=== PATIENT | female | born 1960 | race Caucasian/White ===

== ENCOUNTER → 2019-04-17 | Outpatient (CLI) | payer OTHER ==
--- NOTE | 2019-04-18 08:07 | CTL ---
EXAMINATION TYPE: CT Low Dose Lung DATE OF EXAM ORDERED: 04/17/2019 HISTORY: . Lung cancer screening CT DLP: 76.[address] CTDI: 2.20 mGy Automated exposure control for dose reduction was used. SCREENING VISIT: Initial COMPARISON: None TECHNIQUE: Low dose computed tomography scan was performed through the chest at 1 mm thick sections a nd reconstructed images in the coronal plane at [address] DIAGNOSTIC QUALITY: Satisfactory FINDINGS: LUNG NODULES: None. LUNGS: COPD: Severity: Mild. A few emphysematous blebs at the lung apices Fibrosis: Severity: None Lymph nodes: None Other findings: None RIGHT PLEURAL SPACE: Effusion: None Calcification: None Thickening: None Pneumothorax: None LEFT PLEURAL SPACE: Effusion: None Calcification: None Thickening: None Pneumothorax: None HEART: Heart Size: Normal Coronary calcification: Mild Pericardial effusion: Mild OTHER FINDINGS: Upper abdomen: Normal Bony thorax: Normal Supraclavicular region: Normal Other: Ascending thoracic aorta at the level the main pulmonary artery measures 3.5 cm. The main pul monary artery at the bifurcation measures 2.8 cm. IMPRESSION: 1. Normal low-dose CT chest FOLLOW UP CT CHEST RECOMMENDATION: Screening low-dose CT chest per protocol in [address] LUNG RAD: 1
== END | disposition home or self-care (01) ==
LOC: RADCTMAIN 10:29
PROVIDERS: ATTEND Family Medicine
DX: Z12.2 Encounter for screening for malignant neoplasm of respiratory organs (principal); F17.210 Nicotine dependence, cigarettes, uncomplicated

== ENCOUNTER → 2019-12-24 | Outpatient (CLI) | payer OTHER ==
--- NOTE | 2019-12-24 11:59 | XR ---
EXAMINATION TYPE: XR chest 2V DATE OF EXAM: 12/24/2019 COMPARISON: NONE TECHNIQUE: PA and lateral views submitted. HISTORY: Preop FINDINGS: The lungs are clear and there is no pneumothorax, pleural effusion, or focal pneumonia. No overt fa ilure. Biapical pleural thickening. Hypertrophic and degenerative change of the spine. IMPRESSION: 1. No acute process.
== END | disposition home or self-care (01) ==
LOC: RADXRMAIN 11:30
PROVIDERS: ATTEND Neurological Surgery
DX: I10 Essential (primary) hypertension (principal); G93.5 Compression of brain
CPT/HCPCS: 71046

== ENCOUNTER 2020-01-22 20:02 | Emergency (ER) | payer OTHER ==
[2020-01-22 20:18] VITALS: RESP 18
--- NOTE | 2020-01-22 20:20 | ED ---
General Adult HPI - General Stated complaint: Post Op Incision Leaking Time Seen by Provider: 01/22/20 20:13 Source: patient Mode of arrival: ambulatory Limitations: no limitations - History of Present Illness Initial comments: Dictation was produced using [employer] dictation software. please excuse any grammatical, word or spelling errors. This patient was cared for during a federal and state declared state of emergency secondary to Covid 19 Chief Complaint: 59-year-old female presents with drainage from surgical site History of Present Illness: Patient's 59-year-old female 3 weeks ago patient had foramina and magnetic craniotomy for Chiari malformation. Patient states after the procedure her headache symptoms improved. She was at home relaxing when all of a sudden her son told her that she had drainage of clear fluid from her surgical site on her posterior neck. Patient states she does feel slight dizziness however didn't think much of it. Patient has any numbness and paresthesias to the arms or legs. Denies any vision loss. The ROS documented in this emergency department record has been reviewed and confirmed by me. Those systems with pertinent positive or negative responses have been documented in the HPI. All other systems are other negative and/or noncontributory. PHYSICAL EXAM: General Impression: Alert and oriented x3, not in acute distress HEENT: Normocephalic atraumatic, extra-ocular movements intact, pupils equal and reactive to light bilaterally, mucous membranes moist. Posterior neck: 12 cm surgical site over the posterior neck. There is some swelling around the middle portion of the surgical scar. With mild palpation there is drainage of clear fluid. Cardiovascular: Heart regular rate and rhythm Chest: Able to complete full sentences, no retractions, no tachypnea Abdomen: abdomen soft, non-tender, non-distended, no organomegaly Musculoskeletal: Pulses present and equal in all extremities, no peripheral e lynn Motor: no focal deficits noted Neurological: CN II-XII grossly intact, no focal motor or sensory deficits noted Skin: Intact with no visualized rashes Psych: Normal affect and mood ED course: 79-year-old feel presents with drainage from surgical site. She is 3 weeks postop from craniotomy for Chiari malformation treatment. Vital signs are within acceptable limits. Computed tomography scan of the brain and C-spine shows occipital craniotomy defect with large septated cystic fluid collection behind the occipital bone. There is elongated cystic fluid collection within the septated is fat tissue midline.. There is concern that this fluid that straining from her surgical site is cerebrospinal fluid. Case was discussed with Juliet who is a nurse practitioner who is taking call for Dr. Villareal at [facility]. She will get in contact with Dr. Villareal for recommendations on how to proceed further.Juliet called back and spoke with Dr. Villareal. She requested the patient be sent to [facility] emergency department for ER to ER transfer. Given that there is concern of CSF leakage to the skin patient given cefazolin. Case is discussed with Dr. Woody who is willing to accept patient care for ER to ER transfer. - Related Data Allergies Allergy/AdvReac Type Severity Reaction Status Date / Time No Known Allergies Allergy Verified 01/22/20 20:29 Review of Systems ROS Statement: Those systems with pertinent positive or pertinent negative responses have been documented in the HPI. ROS Other: All systems not noted in ROS Statement are negative. Past Medical History Past Medical History: Hypertension Additional Past Medical History / Comment(s): Chiri One History of Any Multi-Drug Resistant Organisms: None Reported Additional Past Surgical History / Comment(s): crainotomy Sept. 14 Past Psychological History: No Psychological Hx Reported Smoking Status: Former smoker Past Alcohol Use History: None Reported Past Drug Use History: Marijuana General Exam Limitations: no limitations Course Vital Signs 01/22/20 01/22/20 20:15 20:51 Temperature 98 F 97.9 F Pulse Rate 79 75 Respiratory 18 18 Rate Blood Pressure 124/96 137/98 O2 Sat by Pulse 100 98 Oximetry Medical Decision Making - Lab Data Result diagrams: 01/22/20 20:21 01/22/20 20:21 Lab Results 01/22/20 01/22/20 01/22/20 Range/Units 20:21 20:21 20:21 WBC 7.9 (3.8-10.6) k/uL RBC 5.45 H (3.80-5.40) m/uL Hgb 16.2 H (11.4-16.0) gm/dL Hct 47.4 H (34.0-46.0) % MCV 87.1 (80.0-100.0) fL MCH 29.8 (25.0-35.0) pg MCHC 34.2 (31.0-37.0) g/dL RDW 13.1 (11.5-15.5) % Plt Count 370 (150-450) k/uL Neutrophils % 52 % Lymphocytes % 32 % Monocytes % 8 % Eosinophils % 5 % Basophils % 2 % Neutrophils # 4.1 (1.3-7.7) k/uL Lymphocytes # 2.5 (1.0-4.8) k/uL Monocytes # 0.6 (0-1.0) k/uL Eosinophils # 0.4 (0-0.7) k/uL Basophils # 0.2 (0-0.2) k/uL PT 10.4 (9.0-12.0) sec INR 1.0 (<1.2) APTT 23.4 (22.0-30.0) sec Sodium 134 L (137-145) mmol/L Potassium 4.2 (3.5-5.1) mmol/L Chloride 100 (98-107) mmol/L Carbon Dioxide 22 (22-30) mmol/L Anion Gap 12 mmol/L BUN 16 (7-17) mg/dL Creatinine 0.79 (0.52-1.04) mg/dL Est GFR (CKD-EPI)AfAm >90 (>60 ml/min/1.73 sqM) Est GFR (CKD-EPI)NonAf 84 (>60 ml/min/1.73 sqM) Glucose 124 H (74-99) mg/dL Calcium 10.2 (8.4-10.2) mg/dL Disposition Clinical Impression: CSF leak Disposition: OTHER INSTITUTION NOT DEFINED Condition: Fair Referrals: Charmaine Almeida MD [Primary Care Provider] - 1-2 days Time of Disposition: 20:58 - Out of Hospital Transfer - Req. Specs Out of Hospital Transfer - Requested Specifics: Other Emergency Center ([facility])
[2020-01-22 20:27] LABS: Basophils # (A) 0.2 k/uL (0-0.2); Basophils % (A) 2 %; Eosinophils # (A) 0.4 k/uL (0-0.7); Eosinophils % (A) 5 %; HCT 47.4 % (34.0-46.0); HGB 16.2 gm/dL (11.4-16.0); Lymphocytes # (A) 2.5 k/uL (1.0-4.8); Lymphocytes % (A) 32 %; MCH 29.8 pg (25.0-35.0); MCHC 34.2 g/dL (31.0-37.0); MCV 87.1 fL (80.0-100.0); Mean Platelet Volume 7.1; Monocytes # (A) 0.6 k/uL (0-1.0); Monocytes % (A) 8 %; Neutrophils # (A) 4.1 k/uL (1.3-7.7); Neutrophils % (A) 52 %; Platelet Count 370 k/uL (150-450); RBC 5.45 m/uL (3.80-5.40); RDW 13.1 % (11.5-15.5); WBC 7.9 k/uL (3.8-10.6)
[2020-01-22 20:35] LABS: African American GFR (CKD) >90 (>60 ml/min/1.73 sqM); Anion Gap 12 mmol/L; Blood Urea Nitrogen 16 mg/dL (7-17); Calcium 10.2 mg/dL (8.4-10.2); Carbon Dioxide 22 mmol/L (22-30); Chloride 100 mmol/L (98-107); Glucose 124 mg/dL (74-99); Non-African American GFR(CKD) 84 (>60 ml/min/1.73 sqM); Potassium 4.2 mmol/L (3.5-5.1); Sodium 134 mmol/L (137-145)
[2020-01-22 20:39] LABS: Partial Thromboplastin Time 23.4 sec (22.0-30.0); Prothrombin Time 10.4 sec (9.0-12.0)
--- NOTE | 2020-01-22 20:49 | CT ---
EXAMINATION TYPE: CT brain freydine wo con DATE OF EXAM: 01/22/2020 COMPARISON: None HISTORY: Lightheadness and clear liquid drainage at incision site, post craniotomy CT DLP: 1291.6 mGycm Automated exposure control for dose reduction was used. Ventricles have normal size. There is no mass effect nor midline shift. There is no sign of intracran ial hemorrhage. There is no evidence of cerebral edema. There is occipital craniotomy defect in the m idline. The opening is 2.6 cm. It is not clear if there is a complete dural membrane at the craniotom y site. There is a 4 x 6.5 x 4.2 cm septated cystic mass posterior to the occipital bone and extendin g inferiorly to the spinous process of C2. It is not clear if this mass communicates with the CSF. Th ere is also a septated subcutaneous cystic fluid collection in the midline measuring 5.7 x 1.6 cm at the incision site. This fluid has low attenuation and equal to the larger cystic fluid collection pos terior to the occiput. The cervical vertebra have normal alignment. There is no significant cervical disc space narrowing. T here is multilevel cervical hypertrophic facet arthropathy. There is no compression fracture. The pos terior elements of the cervical spine appear intact. IMPRESSION: Minor degenerative hypertrophic changes in the cervical spine. No fracture. Occipital craniotomy defect with large septated cystic fluid collection beyond the occipital bone. Th ere is also elongated cystic fluid collection within the subcutaneous fat in the midline.
[2020-01-22 20:52] VITALS: TEMP 97.9
[2020-01-22 21:29] VITALS: BP 153/98; PULSE 74
== END 2020-01-22 22:11 | disposition other institution (70) ==
LOC: EC 20:02
DX: G96.08 Other cranial cerebrospinal fluid leak (principal); Z87.891 Personal history of nicotine dependence
CPT/HCPCS: 99284 ×2; 96365 ×2; 36415; 80048; 85025; 85610; 85730; 72125; 70450; J0690

== ENCOUNTER → 2020-06-30 | Outpatient (CLI) | payer OTHER ==
--- NOTE | 2020-07-04 11:19 | MM ---
Reason for exam: screening (asymptomatic). Last mammogram was performed 1 year ago. History: Patient is postmenopausal. Physical Findings: A clinical breast exam by your physician is recommended on an annual basis and results should be correlated with mammographic findings. MG 3D Screening Mammo W/Cad Bilateral CC and MLO view(s) were taken. Prior study comparison: July 01, 2019, mammogram, performed at [facility]. May 08, 2018, mammogram, performed at [facility]. Finding: There are typically benign increased, course, round, grouped/clustered calcifications in the 12 o'clock upper quadrant, posterior position of the right breast consistent with fibroadenoma. New finding since July 01, 2019. ASSESSMENT: Incomplete: need additional imaging evaluation, BI-RAD 0 RECOMMENDATION: Special view mammogram of the right breast. [facility] will attempt to contact patient to return for supplemental views.
== END | disposition home or self-care (01) ==
LOC: RADMAMWWP 09:46
PROVIDERS: ATTEND Obstetrics & Gynecology
DX: Z12.31 Encounter for screening mammogram for malignant neoplasm of breast (principal)
CPT/HCPCS: 77063; 77067

== ENCOUNTER → 2020-07-06 | Outpatient (CLI) | payer OTHER ==
--- NOTE | 2020-07-06 11:38 | MM ---
Reason for exam: additional evaluation requested from abnormal screening. Last mammogram was performed less than 1 month ago. History: Patient is postmenopausal. Took hormonal contraceptives for 10 years. Physical Findings: Nurse did not find any significant physical abnormalities on exam. MG 3D Work Up W/Cad RT CC with magnification, ML with magnification, and ML view(s) were taken of the right breast. Prior study comparison: June 30, 2020, bilateral MG 3d screening mammo w/cad. July 01, 2019, mammogram, performed at [facility]. The breast tissue is heterogeneously dense. This may lower the sensitivity of mammography. Finding: There are suspicious coarse fine calcifications in the upper inner quadrant, posterior position of the right breast. These results were verbally communicated to the patient on 07/06/20. ASSESSMENT: Suspicious, BI-RAD 4 RECOMMENDATION: Stereotactic core biopsy of the right breast. Called Dr. Lopez's office with mammographic findings. Patient left without recieving results, patient called and notified of the results. PRELIMINARY REPORT CALLED AND FAXED TO DR. LOPEZ ON 07/06/20.
== END | disposition home or self-care (01) ==
LOC: RADMAMWWP 10:14
PROVIDERS: ATTEND Obstetrics & Gynecology
DX: R92.8 Other abnormal and inconclusive findings on diagnostic imaging of breast (principal)
CPT/HCPCS: 77065; G0279; 77061

== ENCOUNTER → 2020-08-29 | Outpatient (CLI) | payer OTHER ==
[2020-08-29 10:03] VITALS: BP 169/94; PULSE 84; RESP 16; TEMP 98.2
--- NOTE | 2020-08-29 10:56 | P.PAINCN ---
History of Present Illness - Reason for Consult Consult date: 08/29/20 - History of Present Illness This is 60 years old female with a history of severe and chronic neck pain and headache, started several years ago, she is diagnosed with occipital neuralgia, and cervical spondylosis, and patient had Arnold-Chiari malformation, she had surgical correction of the Chiari malformation, and patient had RFA of the medial branch on the left side cervical area, he had excellent pain relief of her headache , currently she is having severe neck pain and headache on the right side, he denies any motor or sensory deficit she denies any fever or night sweats she denies any change in the bowel movement or urination Past Medical History Past Medical History: Hyperlipidemia, Hypertension Additional Past Medical History / Comment(s): PRIOR CHIARI MALFORMATION-HAD SX History of Any Multi-Drug Resistant Organisms: None Reported Past Surgical History: Adenoidectomy, Cholecystectomy, Orthopedic Surgery, Tonsillectomy, Tubal Ligation, Uterine Ablation Additional Past Surgical History / Comment(s): crainotomy Sept. 14. BILAT CATARACTS. CYST REMOVED FROM RT FOOT AND LT WRIST. HAVING RT CTR 08/26/20. COLONOSCOPY Past Anesthesia/Blood Transfusion Reactions: No Reported Reaction Past Psychological History: No Psychological Hx Reported Smoking Status: Former smoker Past Alcohol Use History: Rare Additional Past Alcohol Use History / Comment(s): QUIT SMOKING 01/2020 Past Drug Use History: Marijuana Additional Drug Use History / Comment(s): USES MARIJUANA DAILY - Past Family History Mother Family Medical History: Cancer Father Family Medical History: Cancer Medications and Allergies Home Medications Medication Instructions Recorded Confirmed Type Atorvastatin [Lipitor] 40 mg PO HS 08/24/20 08/29/20 History Ketorolac [Toradol] 10 mg PO BID 08/24/20 08/29/20 History lisinopriL 20 mg PO BID 08/24/20 08/29/20 History Allergies Allergy/AdvReac Type Severity Reaction Status Date / Time nickel Allergy Rash/Hives Verified 08/24/20 12:33 Physical Exam Vitals: Vital Signs Temp Pulse Resp BP Pulse Ox 08/29/20 09:58 98.2 F 84 16 169/94 99 Physical Examinations : -Constitutiona : Cooperative , not in acute distress . -HEENT : nech : supple , no Lymphadenopathy , normal thyroid size . : eyes : no ptosis , no icterus, no photophobia . - neurologic : Cranial nerve II to XII intact , no focal neurological deffecit . -psychatric : alert , oriented X 3 , appropriate affect , intact judgment and insight . -Lymphatic : no Lymphadenopathy . - musculoskeltal : Cervical Spine motor stregnth in the deltoid and biceps, normal right side , normal Left side motor stregnth biceps and the wrist extensors normal right side ,normal left side . motor stregnth in the triceps muscle . normal Right side , normal Left side deep tendon reflexes normal at the biceps , normal at Brachioradialis , normal at triceps. cervical facet loading test: Positive the right side Spurling test= positive Right , positive left. Neck distraction test= positive Right , positive left. Cesar sign= positive right, positive left . Severe tenderness over the occipital nerve on the right side Lumber spine moter stegnth lower extremities ,thigh and legs 5/5 Right side , 5/5 Left side Results Comments: MRI of the brain= possible Chiari malformation Assessment and Plan Plan: Assessment and plan=1-occipital neuralgia. 2-cervical spondylosis with cervical facet arthropathy. Patient had RFA of the medial branch on the Left side, she had excellent pain relief, and he she is having severe neck pain and headache on the right side, she will be in good candidate to have diagnostic medial branch block Time with Patient: Greater than 30 PQRS Measure Charge Sheet Measure #130: Documentation of Current Meds in Medical Chart: Patient's med ications documented in chart Measure #226: Tobacco Use: Screen & Cessation Intervention: Pt not a tobacco user Measure #111: Pneumonia Vaccination: Pneumococcal vaccine NOT administered or previously given Measure #47: Advance Care Plan: Advance care planning discussed & documented, pt chose/unable to give Measure #412: Opioid Treatment Agreement: No documentation of signed opioid treatment agreement Measure #408: Opioid Therapy Follow-up Evaluation: Patient had NO f/u eval minimum every 3 months during opioid therapy Measure #317: Preventitive Care & Scrn High Bld Press & F/U: Pre-hypertensive or hypertensive BP documented, pt will f/u with PCP Measure #128: Body Mass Index (BMI) Screening & Follow-up: BMI documented ABOVE normal parameters - f/u documented Measure #131: Pain Assessment & Follow-up: Pain positive & plan documented, Follow-up scheduled Measure #431: Unhealthy Alcohol Use Preventative Care & Scrn: Patient not identified as an unhealthy alcohol user PQRS Narrative: Blood Pressure 169/94 Pain Intensity [Right Neck] 4 Scale Used Numeric (1 - 10) Hx Alcohol Use (MH) Yes Home Medications: Ambulatory Orders Atorvastatin [Lipitor] 40 mg PO HS 08/24/20 Ketorolac [Toradol] 10 mg PO BID 08/24/20 lisinopriL 20 mg PO BID 08/24/20
== END ==
LOC: PNWHC3 09:32
PROVIDERS: ATTEND Specialist
DX: M47.812 Spondylosis without myelopathy or radiculopathy, cervical region (principal); M54.81 Occipital neuralgia; Z98.890 Other specified postprocedural states; E78.5 Hyperlipidemia, unspecified; I10 Essential (primary) hypertension; Z87.891 Personal history of nicotine dependence; Z91.048 Other nonmedicinal substance allergy status; Z79.899 Other long term (current) drug therapy
CPT/HCPCS: 99211

== ENCOUNTER 2020-09-23 07:41 | Day surgery (SDC) | payer OTHER ==
[2020-09-22 09:17] VITALS: BMI 28.6
[2020-09-23] MEDS ORDERED: LACTATED RINGERS 1,000 ML IV SCH (07:53)
[2020-09-23 08:13] VITALS: TEMP 97.3
[2020-09-23] MEDS ORDERED: fentaNYL (PF) 50 MCG/ML 2 ML AMP ONE (08:44)
[2020-09-23] MEDS ORDERED: ROPIVACAINE 5MG/ML 20ML VIAL ONE (08:44)
[2020-09-23] MEDS ORDERED: MIDAZOLAM 2 MG/2 ML VIAL ONE (08:44)
[2020-09-23] MEDS ORDERED: methylPREDNISolone ACETATE 40 MG/ML 1 ML VIAL ONE (08:44)
--- NOTE | 2020-09-23 09:02 | P.PCN ---
Date of Procedure: 09/23/20 Procedure(s) Performed: PREOPERATIVE DIAGNOSIS: Cervical Spondylosis with Facet Arthropathy.without myelopathy. occipital neuralgia POSTOPERATIVE DIAGNOSIS: Cervical Spondylosis Facet Arthropathy. Without myelopathy PROCEDURES: Diagnostic ,right. C2 , C3, C4 medial branch blocks, with fluoroscopic guidance (fluoroscopy images available in radiology department ) ( to target the facet joint at Right C2- 3 ,C3-4 ) # 1st ANESTHESIA: monitered anesthesia care as per anesthesia department. EBL: Minimal PROCEDURE INDICATION: The patient with neck pain secondary to cervical arthropathy unresponsive to more conservative treatments. PROCEDURE DESCRIPTION / TECHNIQUE: The patient was seen and identified in the preoperative area. Risks, benefits, complications, and alternatives were discussed with the patient, the patient agreed to proceed with the procedure and signed the consent. IV was started. Vital signs remained stable throughout the procedure. Patient was taken to the OR and time out was completed. The patient was placed in the lateral position on the procedure table( Right side up ). The cervical area was prepped and draped in the usual sterile fashion. Critical pause was taken. Vital signs were closely monitored during the procedure. Conscious sedation was used during the procedure to decrease patients anxiety. Using cross-table lateral fluoroscopy, the centroid of the trapezoid of right C2 ,C3, C4 , was identified, marked, and localized with 1% lidocaine 1 ml at each level for skin and Sub Q infiltrations . Subsequently, a 25 G 3 spinal needle was advanced guided by fluoroscopy to the centroid of the trapezoid of Right C2 C3, C4 , . [place] tip position was confirmed at the centroid of the trapezoids of Right C2 ,C3 , C4 , with anteroposterior fluoroscopy. Subsequently, 1.5 ml of preservative-free Ropivacaine 0.5% mixed with Depo- Medrol 20 mg and half ml of the mixture was injected after negative aspiration for blood and CSF. [place] was then removed intact COMPLICATIONS: No acute complications. DISPOSITION / PLANS: The patient was placed in a supine position and transferred to the recovery area in a stable condition for observation and was discharged from the recovery room after meeting discharge criteria. Home discharge instructions given to the patient by the staff. The patient was reexamined prior to discharge. The patient will schedule a follow up in the clinic in 2-4 weeks.
[2020-09-23 09:04] VITALS: RESP 17
--- NOTE | 2020-09-23 09:05 | FL ---
EXAMINATION TYPE: FL guided pain mgmt statistic DATE OF EXAM: 09/23/2020 HISTORY: Fluoroscopy time 13 seconds of fluoroscopy provided. IMPRESSION: 1. Fluoroscopy time.
[2020-09-23 09:12] VITALS: BP 133/87; PULSE 74
== END 2020-09-23 09:30 | disposition home or self-care (01) ==
LOC: ORPAIN 07:41
PROVIDERS: ATTEND Specialist
DX: M47.812 Spondylosis without myelopathy or radiculopathy, cervical region (principal); M54.81 Occipital neuralgia; I10 Essential (primary) hypertension; E78.5 Hyperlipidemia, unspecified; Z91.048 Other nonmedicinal substance allergy status; Z79.899 Other long term (current) drug therapy; G93.5 Compression of brain; Z98.890 Other specified postprocedural states
CPT/HCPCS: 64490; 64491; J2250; J1030; J3010; J2795

== ENCOUNTER → 2020-10-19 | Outpatient (CLI) | payer OTHER ==
[2020-10-19 14:35] VITALS: BP 180/111; PULSE 78; RESP 16; TEMP 98.4
--- NOTE | 2020-10-19 14:59 | P.PN ---
Subjective Progress Note Date: 10/19/20 This is 60 years old female with a history of severe and chronic neck pain and headache, started several years ago, she is diagnosed with occipital neuralgia, and cervical spondylosis, and patient had Arnold-Chiari malformation, she had surgical correction of the Chiari malformation, and patient had RFA of the medial branch on the left side cervical area, he had excellent pain relief of her headache , recently we did diagnostic medial branch block cervical area on the right side at C2-C3 and C4 , he reported that she gets 70-80% improvement of her neck pain on the right side after the diagnostic block , pain relief was for short-term currently she is having severe neck pain and headache on the right side, he denies any motor or sensory deficit she denies any fever or night sweats she denies any change in the bowel movement or urination Physical Examinations : -Constitutiona : Cooperative , not in acute distress . -HEENT : nech : supple , no Lymphadenopathy , normal thyroid size . : eyes : no ptosis , no icterus, no photophobia . - neurologic : Cranial nerve II to XII intact , no focal neurological deffecit . -psychatric : alert , oriented X 3 , appropriate affect , intact judgment and insight . -Lymphatic : no Lymphadenopathy . - musculoskeltal : Cervical Spine motor stregnth in the deltoid and biceps, normal right side , normal Left side motor stregnth biceps and the wrist ex tensors normal right side ,normal left side . motor stregnth in the triceps muscle . normal Right side , normal Left side deep tendon reflexes normal at the biceps , normal at Brachioradialis , normal at triceps. cervical facet loading test: Positive the right side Spurling test= positive Right , positive left. Neck distraction test= positive Right , positive left. Cesar sign= positive right, positive left . Severe tenderness over the occipital nerve on the right side Lumber spine moter stegnth lower extremities ,thigh and legs 5/5 Right side , 5/5 Left side Results Comments: MRI of the brain= possible Chiari malformation Assessment and Plan Plan: Assessment and plan=1-occipital neuralgia. 2-cervical spondylosis with cervical facet arthropathy. Patient excellent pain relief, after right-sided medial branch block , scheduled for second right-sided medial branch block cervical area at C2, C3 , C4 PQRS Measure Charge Sheet Measure #130: Documentation of Current Meds in Medical Chart: Patient's medications documented in chart Measure #226: Tobacco Use: Screen & Cessation Intervention: Pt not a tobacco user Measure #111: Pneumonia Vaccination: Pneumococcal vaccine NOT administered or previously given Measure #47: Advance Care Plan: Advance care planning discussed & documented, pt chose/unable to give Measure #412: Opioid Treatment Agreement: No documentation of signed opioid treatment agreement Measure #408: Opioid Therapy Follow-up Evaluation: Patient had NO f/u eval minimum every 3 months during opioid therapy Measure #317: Preventitive Care & Scrn High Bld Press & F/U: Pre-hypertensive or hypertensive BP documented, pt will f/u with PCP Measure #128: Body Mass Index (BMI) Screening & Follow-up: BMI documented ABOVE normal parameters - f/u documented Measure #131: Pain Assessment & Follow-up: Pain positive & plan documented, Follow-up scheduled Measure #431: Unhealthy Alcohol Use Preventative Care & Scrn: Patient not identified as an unhealthy alcohol user PQRS Narrative: Objective - Vital Signs Vital signs: Vital Signs Temp 98.4 F 10/19/20 14:20 Pulse 78 10/19/20 14:20 Resp 16 10/19/20 14:20 BP 180/111 10/19/20 14:20 Pulse Ox 97 10/19/20 14:20 Intake & Output 10/18/20 10/19/20 10/19/20 18:59 06:59 18:59 Weight 79.379 kg
== END ==
LOC: PNWHC3 13:55
PROVIDERS: ATTEND Specialist
DX: M54.81 Occipital neuralgia (principal); M47.812 Spondylosis without myelopathy or radiculopathy, cervical region; Z88.9 Allergy status to unspecified drugs, medicaments and biological substances
CPT/HCPCS: 99211

== ENCOUNTER 2020-11-11 07:12 | Day surgery (SDC) | payer OTHER ==
[2020-11-10 08:45] VITALS: BMI 28.6
[~2020-11-11 07:12] MED LIST: LACTATED RINGERS 1,000 ML IV SCH
[2020-11-11] MEDS ORDERED: LACTATED RINGERS 1,000 ML IV ONE (07:35)
[2020-11-11 07:36] VITALS: TEMP 97.8
[2020-11-11] MEDS ORDERED: DEXAMETHASONE SOD PHOSPHATE 10 MG/ML 1 ML VIAL ONE (08:00)
[2020-11-11] MEDS ORDERED: ROPIVACAINE 5MG/ML 20ML VIAL ONE (08:00)
[2020-11-11] MEDS ORDERED: MIDAZOLAM 2 MG/2 ML VIAL ONE (08:00)
[2020-11-11] MEDS ORDERED: fentaNYL (PF) 50 MCG/ML 2 ML AMP ONE (08:00)
--- NOTE | 2020-11-11 08:18 | P.PCN ---
Date of Procedure: 11/11/20 Surgeon: Hamzah Medina Pathology: none sent Condition: stable Disposition: PACU Description of Procedure: re and Postoperative diagnoses cervicogenic headache Name of procedure: Cervical medial branch block for C2 , C3 ,C4 and block of the third occipital nerve on the right side Surgeon:Hamzah Medina MD Anesthesia: IV moderate conscious sedation with 2 mg of Versed Description of procedure: The patient was seen and identified in the preoperative area. Risks, benefits, complications, and alternatives were discussed with the patient, the patient agreed to proceed with the procedure and signed the consent. IV was started. Vital signs remained stable throughout the procedure. Patient was taken to the OR and time out was completed. The patient was placed in the supine position on the procedure table. . The cervical area was prepped with chloraprep and draped in the usual sterile fashion. Critical pause was taken. Vital signs were closely monitored during the procedure. Conscious sedation was used during the procedure to decrease patients anxiety. The lateral view of fluoroscopy was used to identify the C2 ,C3and C4 trapezoid shaped cervical articular pillars and the target points were the center of the articular pillars . I used 25-gauge 3-1/2 inch Quincke spinal needle to go through the skin after localizing it with lidocaine 1% and to contact the bone at the above-mentioned target point then the AP view of fluoroscopy was used to verify needle position at the waist of the C2 ,C3 and C4 vertebral bodies laterally. For the 3rd occipital nerve the target point was at the center of the C2-C3 joint line bilaterally . after contacting bone at the target points mentioned above I injected 0.5 MLS of a solution made up off 3 ml of preservative-free Bupivacaine 0.5% mixed with Dexamethasone 10 mg and half ml of the mixture was injected at each level after negative aspiration for blood and CSF. Tibbie were then removed intact the same procedure was repeated on the left side. COMPLICATIONS: No acute complications. COMMENTS: A copy of needle placement was saved to the C-arm at the radiology department DISPOSITION / PLANS: The patient was placed in a supine position and transferred to the recovery area in a stable condition for observation and was discharged from the recovery room after meeting discharge criteria. Home discharge instructions given to the patient by the staff. The patient was reexamined prior to discharge. The patient will be scheduled for a repeat of this injection in 2- 4 weeks.
[2020-11-11] MEDS ORDERED: IV FLUID CONTINUATION 1,000 ML IV ONE (08:23)
[2020-11-11 08:25] VITALS: RESP 16
[2020-11-11 08:39] VITALS: BP 125/81; PULSE 60
--- NOTE | 2020-11-11 09:46 | FL ---
EXAMINATION TYPE: FL guided pain mgmt statistic DATE OF EXAM: 11/11/2020 HISTORY: Fluoroscopy time 5 seconds of fluoroscopy provided. IMPRESSION: 1. Fluoroscopy time.
== END 2020-11-11 08:55 | disposition home or self-care (01) ==
LOC: ORPAIN 07:12
PROVIDERS: ATTEND Anesthesiology
DX: G44.89 Other headache syndrome (principal); I10 Essential (primary) hypertension; E78.5 Hyperlipidemia, unspecified
CPT/HCPCS: 64490; 64491; J2250; J1100; J3010; J2795

== ENCOUNTER → 2020-12-07 | Outpatient (CLI) | payer OTHER ==
--- NOTE | 2020-12-07 12:35 | P.PAINPG ---
Subjective Progress Note Date: 12/07/20 This is 60 years old female with a history of severe and chronic neck pain and headache, started several years ago, she is diagnosed with occipital neuralgia, and cervical spondylosis, and patient had Arnold-Chiari malformation, she had surgical correction of the Chiari malformation, and patient had RFA of the medial branch on the left side cervical area, he had excellent pain relief of her headache , performed a right-sided C2-C3 and C3-C4 medial branch block which gave 70-80% relief of the neck pain. We just performed these blocks again for the second time. She said she got about 80% relief with this medial branch block. She is ready to proceed to radiofrequency ablation. She did mention that in the past she got what sounded like cervical ablations on the left side from another pain physician and was wondering if she should just go back to them. At this time she would like to stay with us. I said if she wanted us to do the ablations on the left side she would need to call them and give them a release form to send us was records. he denies any motor or sensory deficit she denies any fever or night sweats she denies any change in the bowel movement or urination Physical Examinations : -Constitutiona : Cooperative , not in acute distress . -HEENT : nech : supple , no Lymphadenopathy , normal thyroid size . : eyes : no ptosis , no icterus, no photophobia . - neurologic : Cranial nerve II to XII intact , no focal neurological deffecit . -psychatric : alert , oriented X 3 , appropriate affect , intact judgment and insight . -Lymphatic : no Lymphadenopathy . - musculoskeltal : Cervical Spine motor stregnth in the deltoid and biceps, normal right side , normal Left side motor stregnth biceps and the wrist extensors normal right side ,normal left side . motor stregnth in the triceps muscle . normal Right side , normal Left side deep tendon reflexes normal at the biceps , normal at Brachioradialis , normal at triceps. cervical facet loading test: Positive the right side Spurling test= positive Right , positive left. Neck distraction test= positive Right , positive left. Cesar sign= positive right, positive left . Severe tenderness over the occipital nerve on the right side Lumber spine moter stegnth lower extremities ,thigh and legs 5/5 Right side , 5/5 Left side Results Comments: MRI of the brain= possible Chiari malformation Assessment and Plan Plan: Assessment and plan=1-occipital neuralgia. 2-cervical spondylosis with cervical facet arthropathy. Patient excellent pain relief, after right-sided medial branch block , scheduled for RFA at C2, C3 , C4 I have spent 29 minutes on patient care today. The time was used to review the medical records including relevant urine studies and prescription history, review of the available imaging, evaluation and examination of the patient, coordination of care with the medical staff and if applicable referring physicians, as well as creation of the medical record. PQRS Measure Charge Sheet Measure #130: Documentation of Current Meds in Medical Chart: Patient's medications documented in chart Measure #226: Tobacco Use: Screen & Cessation Intervention: Pt not a tobacco user Measure #111: Pneumonia Vaccination: Pneumococcal vaccine NOT administered or previously given Measure #47: Advance Care Plan: Advance care planning discussed & documented, pt chose/unable to give Measure #412: Opioid Treatment Agreement: No documentation of signed opioid treatment agreement Measure #408: Opioid Therapy Follow-up Evaluation: Patient had NO f/u eval minimum every 3 months during opioid therapy Measure #317: Preventitive Care & Scrn High Bld Press & F/U: Pre-hypertensive or hypertensive BP documented, pt will f/u with PCP Measure #128: Body Mass Index (BMI) Screening & Follow-up: BMI documented ABOVE normal parameters - f/u documented Measure #131: Pain Assessment & Follow-up: Pain positive & plan documented, Follow-up scheduled Measure #431: Unhealthy Alcohol Use Preventative Care & Scrn: Patient not identified as an unhealthy alcohol user PQRS Narrative: PQRS Measure Charge Sheet PQRS Narrative: Pain Intensity [Head] 4 Scale Used Numeric (1 - 10) Hx Alcohol Use (MH) Yes Home Medications: Ambulatory Orders Atorvastatin [Lipitor] 40 mg PO HS 08/24/20 Ketorolac [Toradol] 10 mg PO BID 08/24/20 lisinopriL 20 mg PO BID 08/24/20 Acetaminophen [Tylenol Extra Strength] 1,000 mg PO DIRECTED PRN 11/10/20 Controlled Substance Measures - Controlled Substance Measures Is patient prescribed a controlled substance at discharge?: No
[2020-12-07 12:59] VITALS: BP 150/99; PULSE 78; RESP 18; TEMP 98.3
== END ==
LOC: PNWHC3 12:12
PROVIDERS: ATTEND Anesthesiology
DX: M54.81 Occipital neuralgia (principal); M47.812 Spondylosis without myelopathy or radiculopathy, cervical region; Z91.048 Other nonmedicinal substance allergy status
CPT/HCPCS: 99211

== ENCOUNTER 2020-12-30 06:27 | Day surgery (SDC) | payer OTHER ==
[2020-12-29 08:58] VITALS: BMI 29.8
[2020-12-30 06:50] VITALS: RESP 18; TEMP 97.1
[2020-12-30] MEDS ORDERED: MIDAZOLAM 2 MG/2 ML VIAL ONE (07:24)
[2020-12-30] MEDS ORDERED: ROPIVACAINE 5MG/ML 20ML VIAL ONE (07:24)
[2020-12-30] MEDS ORDERED: methylPREDNISolone ACETATE 40 MG/ML 1 ML VIAL ONE (07:24)
[2020-12-30] MEDS ORDERED: fentaNYL (PF) 50 MCG/ML 2 ML AMP ONE (07:24)
--- NOTE | 2020-12-30 07:46 | P.PCN ---
Date of Procedure: 12/30/20 Procedure(s) Performed: PREOPERATIVE DIAGNOSIS: Cervical spondylosis with Facet Arthropathy without myelopathy. POSTOPERATIVE DIAGNOSIS: Cervical spondylosis with Facet Arthropathy without myelopathy. PROCEDURES: Radiofrequency thermocoagulation Right C2 ,C3, C4, medial branch with Fluroscopy [place](fluoroscopy was available in etiology department ) (to denervate the facet joint at Right C2-3 , C3- 4 ) ANESTHESIA: monitered anesthesia care ,as per anesthesia department EBL: Minimal PROCEDURE INDICATION: The patient with neck pain secondary to cervical arthropathy who had more than 50% relief of her pain with previous diagnostic cervical medial branch block. PROCEDURE DESCRIPTION / TECHNIQUE: The patient was seen and identified in the preoperative area. Risks, benefits, complications, and alternatives were discussed with the patient, the patient agreed to proceed with the procedure and signed the consent. IV was started. Vital signs remained stable throughout the procedure. Patient was taken to the OR and time out was completed. The patient was placed in the prone position on the procedure table. A pillow was placed under the patients chest to increase the cervical interlaminar space. The cervical area was prepped and draped in the usual sterile fashion. Critical pause was taken. Vital signs were closely monitored during the procedure. Conscious sedation was used during the procedure to decrease patients anxiety. Using cross-table lateral fluoroscopy, the centroid of the trapezoid of Right C2 ,C3, C4, were identified, marked, and localized with 1% lidocaine. Subsequently, a 20 -en radiofrequency cannula with a 10-mm active tip was advanced guided by fluoroscopy to the centroid of the trapezoid of Right C2 C3, C4,. Needle tip position was confirmed at the centroid of the trapezoids of Right C2 , C3, C4, with anteroposterior fluoroscopy. Each site then underwent sensory testing at 50 Hz and 0 to 1 volt and motor testing at 2 Hz and 0 to 3 volt with local stimulation, but no radicular symptoms down the arm. Thereafter each sites underwent radiofrequency thermocoagulation at 80 degrees celsius for 90 seconds after injecting 0.5 ml of PF Ropivacaine 0.5 %. After thermocoagulation, 1 ml of the block solution containing Depo-Medrol 40 mg and 5 mL of preservative-free normal saline was injected at the Right C2 ,C3, C4, levels after negative aspiration of CSF and blood and with no paresthesias. Cannulas were retracted while injecting lidocaine 1% until the needle is out. Skin was cleansed and bandages were applied. COMPLICATIONS: No acute complications. DISPOSITION / PLANS: The patient was placed in a supine position and transferred to the recovery area in a stable condition for observation and was discharged from the recovery room after meeting discharge criteria. Home discharge instructions given to the patient by the staff. The patient was reexamined prior to discharge. The patient will schedule a follow up in the clinic in 2-4 weeks.
[2020-12-30] MEDS ORDERED: IV FLUID CONTINUATION 1,000 ML IV ONE (07:47)
[2020-12-30 08:05] VITALS: BP 145/90; PULSE 69
--- NOTE | 2020-12-30 09:01 | FL ---
Fluoroscopy HISTORY: Pain 4 seconds fluoroscopy time supplied to the referring clinician. 2 intraoperative C-arm images docume nt the procedure. See dictated report from anesthesia.
== END 2020-12-30 08:19 | disposition home or self-care (01) ==
LOC: ORPAIN 06:27
PROVIDERS: ATTEND Specialist
DX: M47.812 Spondylosis without myelopathy or radiculopathy, cervical region (principal); I10 Essential (primary) hypertension; E78.5 Hyperlipidemia, unspecified; Z87.891 Personal history of nicotine dependence; Z79.899 Other long term (current) drug therapy
CPT/HCPCS: 64633; 64634; J2250; J1030; J3010; J2795

== ENCOUNTER → 2021-01-16 | Outpatient (CLI) | payer OTHER ==
--- NOTE | 2021-01-16 12:45 | MM ---
Reason for exam: follow-up at short interval from prior study. Last mammogram was performed 6 months ago. History: Patient is postmenopausal. Benign excisional biopsy of the right breast, July 2020. Took hormonal contraceptives for 10 years. Physical Findings: Nurse did not find any significant physical abnormalities on exam. MG 3D Diag Mammo W/Cad RT CC, MLO, LM, XCCL, and LM with magnification view(s) were taken of the right breast. Prior study comparison: July 06, 2020, right breast MG 3d work up w/cad RT. June 30, 2020, bilateral MG 3d screening mammo w/cad. July 01, 2019, mammogram, performed at [facility]. May 08, 2018, mammogram, performed at [facility]. The breast tissue is heterogeneously dense. This may lower the sensitivity of mammography. Post excisional change of the previous 12 o'clock calcifications. Grouped superior posterior microcalcifications fall to the 9 o'clock position on true lateral. These are increased but appear punctate and 6 month follow up is recommended. These results were verbally communicated with the patient and result sheet given to the patient on 01/16/21. ASSESSMENT: Probably benign, BI-RAD 3 RECOMMENDATION: Follow-up diagnostic mammogram of the right breast in 6 months.
== END | disposition home or self-care (01) ==
LOC: RADMAMWWP 08:43
PROVIDERS: ATTEND Surgery
DX: R92.0 Mammographic microcalcification found on diagnostic imaging of breast (principal)
CPT/HCPCS: 77065; G0279; 77061

== ENCOUNTER → 2021-02-01 | Outpatient (CLI) | payer OTHER ==
--- NOTE | 2021-02-01 08:28 | P.PN ---
Subjective Progress Note Date: 02/01/21 This is 60 years old female with a history of severe and chronic neck pain and headache, started several years ago, she is diagnosed with occipital neuralgia, and cervical spondylosis, and patient had Arnold-Chiari malformation, she had surgical correction of the Chiari malformation, and patient had RFA of the medial branc cervical area, and if she is complaining of severe neck pain with radiation to the right upper extremity and she has some numbness and tingling sensation in the right upper extremity, she denies any motor or sensory deficit she denies any fever or night sweats she denies any change in the bowel movement or urination, patient in the process of getting EMG and nerve conduction study for extended Physical Examinations : -Constitutiona : Cooperative , not in acute distress . -HEENT : nech : supple , no Lymphadenopathy , normal thyroid size . : eyes : no ptosis , no icterus, no photophobia . - neurologic : Cranial nerve II to XII intact , no focal neurological deffecit . -psychatric : alert , oriented X 3 , appropriate affect , intact judgment and insight . -Lymphatic : no Lymphadenopathy . - musculoskeltal : Cervical Spine motor stregnth in the deltoid and biceps, normal right side , normal Left side motor stregnth biceps and the wrist extensors normal right side ,normal left side . motor stregnth in the triceps muscle . normal Right side , normal Left side deep tendon reflexes normal at the biceps , normal at Brachioradialis , normal at triceps. cervical facet loading test: Positive the right side Spurling test= positive Right , positive left. Neck distraction test= positive Right , positive left. Cesar sign= positive right, positive left . Multiple trigger point identified in the right side cervical paraspinal muscles Lumber spine moter stegnth lower extremities ,thigh and legs 5/5 Right side , 5/5 Left side Assessment and plan=1-occipital neuralgia. 2-cervical spondylosis with cervical facet arthropathy. 3-cervical radiculopathy. 4-myofascial pain syndrome and cervical paraspinal muscles. she could benefit from cervical epidural steroid injection at C7-T1 right paramedian approach She could benefit from trigger point injections right-sided cervical paraspinal muscles - PQRS measures = - Patient's medications are documented in the chart. -Tobacco use is positive and counseling.Given.(VAPE ) -Patient's has not received pneumococcal vaccine. -Advanced care planning discussed, patient not eligible. -Opiate contract not signed. -Pain positive and follow-up visit/procedure is scheduled. -Patient's blood pressure measured , and documented in the record ,and patient will follow up with the primary care. -Patient's weight was measured and body mass index [ ] above the normal limits and counseling was done. and patient instructed to follow-up with the primary care physician. -Patient was not identified as an unhealthy alcohol user Objective - Vital Signs Vital signs: Intake & Output 01/31/21 02/01/21 02/01/21 18:59 06:59 18:59 Weight 83.915 kg
[2021-02-01 08:29] VITALS: BP 167/115; PULSE 80; RESP 18; TEMP 98.6
== END ==
LOC: PNWHC3 07:45
PROVIDERS: ATTEND Specialist
DX: M54.81 Occipital neuralgia (principal); M47.22 Other spondylosis with radiculopathy, cervical region; M79.18 Myalgia, other site; Z88.9 Allergy status to unspecified drugs, medicaments and biological substances
CPT/HCPCS: 99211

== ENCOUNTER → 2021-06-29 | Outpatient (CLI) | payer OTHER ==
--- NOTE | 2021-06-29 11:17 | MM ---
Reason for exam: additional evaluation requested from prior study. Last mammogram was performed 5 months ago. History: Patient is postmenopausal. Benign excisional biopsy of the right breast, July 2020. Took hormonal contraceptives for 10 years. Physical Findings: A clinical breast exam by your physician is recommended on an annual basis and results should be correlated with mammographic findings. MG 3D Diag Mammo W/Cad CHATA Bilateral CC and MLO view(s) were taken. Prior study comparison: January 16, 2021, right breast MG 3d diag mammo w/cad RT. July 06, 2020, right breast MG 3d work up w/cad RT. The breast tissue is heterogeneously dense. This may lower the sensitivity of mammography. There is chronic nodularity bilaterally. There is no dominant lesion. No significant new findings when compared with previous films. These results were verbally communicated with the patient and result sheet given to the patient on 06/29/21. ASSESSMENT: Benign, BI-RAD 2 RECOMMENDATION: Routine screening mammogram of both breasts in 1 year.
== END | disposition home or self-care (01) ==
LOC: RADMAMWWP 10:36
PROVIDERS: ATTEND Surgery
DX: D24.1 Benign neoplasm of right breast (principal); Z78.0 Asymptomatic menopausal state
CPT/HCPCS: 77066; G0279; 77062

== ENCOUNTER → 2021-10-19 | Outpatient (CLI) | payer OTHER ==
--- NOTE | 2021-10-19 11:16 | XR ---
Right foot HISTORY: Pain 3 views of the right foot Bone mineralization is reduced. Joint spaces and alignment are maintained. No evident fracture or dis location. Degenerative change present at the metatarsophalangeal joint of the first digit. There is a plantar calcaneal spur. There is hypertrophic change at the tarsometatarsal joints. IMPRESSION: Correlate for osteoarthritis. Plantar calcaneal spur.
--- NOTE | 2021-10-20 10:52 | MR ---
EXAMINATION TYPE: MR cervical spine wo con DATE OF EXAM: 10/19/2021 1:43 PM COMPARISON: NONE HISTORY: No prior, right hand numbness, history of chiari decompression Multiplanar MultiSpin echo imaging of the cervical spine was performed. Comparison: none C2-C3: No evidence for degenerative disc disease. No disc bulge/herniation or protrusion. No Canal stenosis. Foramina are patent bilaterally. C3-C4: Mild decreased signal and loss of height compatible with degenerative disc disease. Mild poste rior disc bulge with mild effacement ventral thecal sac. No evidence for disc herniation or protrusio n. No evidence for central stenosis. Foramina are patent bilaterally. C4-C5: No evidence for degenerative disc disease. No disc bulge/herniation or protrusion. No Canal stenosis. Mild degenerative changes of the left-sided cervical apophyseal joints resulting in mild le ft foraminal encroachment. C5-C6: Mild decreased signal and loss of height compatible with degenerative disc disease. Mild poste rior disc bulge with mild effacement ventral thecal sac. No evidence for disc herniation or protrusio n. No evidence for central stenosis. Foramina are patent bilaterally. C6-C7: No evidence for degenerative disc disease. No disc bulge/herniation or protrusion. No Canal stenosis. Foramina are patent bilaterally. C7-T1: No evidence for degenerative disc disease. No disc bulge/herniation or protrusion. No Canal stenosis. Foramina are patent bilaterally. Occipital decompressive surgery noted. There is residual seroma much improved from prior CT with curr ent measurement of 4.8 cm craniocaudal dimension AP measurement of 1.7 cm. Cervical segments are inta ct. There is normal alignment. Cervical spinal cord is of normal signal. Craniovertebral junction relationships are within normal limits. IMPRESSION: 1. Decompressive occipital craniotomy with decreasing residual seroma. 2. Mild multilevel degenerative disc disease and disc bulging. Left-sided neural foraminal encroachme nt at C4-5.
== END | disposition home or self-care (01) ==
LOC: RADMRIMAIN 10:32
PROVIDERS: ATTEND Family Medicine
DX: M50.123 Cervical disc disorder at C6-C7 level with radiculopathy (principal); M19.071 Primary osteoarthritis, right ankle and foot; M77.31 Calcaneal spur, right foot
CPT/HCPCS: 72141

== ENCOUNTER → 2023-01-30 | Outpatient (CLI) | payer OTHER ==
--- NOTE | 2023-01-31 08:56 | MM ---
Reason for Exam: Screening (asymptomatic). Last mammogram was performed 1 year(s) and 7 month(s) ago. Patient History: Menarche at age 13. First Full-Term at age 25. Postmenopausal. Patient used Hormonal Contraceptives for 10 years. 07/2020, Benign Excisional Biopsy on the right side. Risk Values: Brigitte 5 year model risk: 1.7%. NCI Lifetime model risk: 8.5%. Prior Study Comparison: 07/06/2020 Right Diagnostic Mammogram, [facility]. 01/16/2021 Right Diagnostic Mammogram, [facility]. 06/29/2021 Bilateral Diagnostic Mammogram, [facility]. Tissue Density: The breast tissue is heterogeneously dense. This may lower the sensitivity of mammography. Findings: Analyzed By CAD. There is no suspicious group of microcalcifications or new suspicious mass. Overall Assessment: Negative, BI-RAD 1 Management: Screening Mammogram of both breasts in [address] [facility] will attempt to contact patient to return for supplemental views and ultrasound if indicated. Patient should continue monthly self-breast exams. A clinical breast exam by your physician is recommended on an annual basis. This exam should not preclude additional follow-up of suspicious palpable abnormalities. Note on Brigitte scores and lifetime risk: 1. A Brigitte score greater than 3% is considered moderate risk. If this is the case, consider specialist referral to assess eligibility for a risk reducing agent. 2. If overall lifetime risk for the development of breast cancer is 20% or higher, the patient may qualify for future screening with alternating mammogram and breast MRI. Electronically signed and approved by: Lance Arreaga DO
== END | disposition home or self-care (01) ==
LOC: RADMAMWWP 06:55
PROVIDERS: ATTEND Obstetrics & Gynecology
DX: Z12.31 Encounter for screening mammogram for malignant neoplasm of breast (principal); Z78.0 Asymptomatic menopausal state
CPT/HCPCS: 77063; 77067

== ENCOUNTER → 2023-10-16 | Outpatient (CLI) | payer OTHER ==
--- NOTE | 2023-10-17 11:35 | MR ---
EXAMINATION TYPE: MR brain/cspine wo DATE OF EXAM: 10/16/2023 8:52 PM CLINICAL INDICATION:Female, 63 years old with history of G93.5 COMPRESSION OF BRAIN,Q07.9; PHH, Compr ession of Brain, Hx of decompression surgery, Weakness upper extremities COMPARISON: 10/29/2021 TECHNIQUE: Multi planar, multi sequence imaging was performed through the brain including: T1, T2, Inversion rec overy, Diffusion weighted imaging, and gradient echo imaging. No gadolinium was given. Multi planar, multi sequence imaging was performed utilizing: T1-weighted, T2-weighted, and turbo inv ersion recovery imaging of the cervical spine. IV Contrast: cc none FINDINGS: Postsurgical changes of the skull base. No tonsillar herniation of the cerebellum. There is a fluid o utpouching from the posterior calvarium series 1101 image 11 measuring 43 x 16 x 30 mm with the right cerebellar hemisphere mildly entering at up to 7 mm. No abnormal postcontrast enhancement. Scattered susceptibility foci compatible with history of surgery. The millan-white junctions, ventricular system, basal cisterns appear unremarkable. Patchy areas of h igh T2 signal intensity are seen within the periventricular white matter. Midline structures show no abnormality. Diffusion-weighted imaging shows no evidence of restricted diffusion. The susceptibility weighted images do not reveal any evidence for micro-hemorrhage. Paranasal sinuses and mastoid air cells: No significant paranasal sinus disease. Visualized orbits: Orbital contents are intact. Alignment: The cervical vertebral bodies have preserved heights. Alignment is within normal limits gi giovanna patient positioning. Bones: Bone signal is within normal limits. No abnormal bone marrow edema on inversion recovery seque nces. Mild degeneration changes throughout the spine with osteophyte formation disc space narrowing. Cord: The spinal cord is unremarkable with regards to their signal intensity and morphology. Discs: Intervertebral disc signal is maintained. C2-C3: No significant disc pathology. The spinal canal is patent. No neural foraminal stenosis. C3-C4: No significant disc pathology. The spinal canal is patent. Bilateral facet and uncovertebral joint arthropathy are present with mild right neural foraminal stenosis. The left neural foramen is p atent. C4-C5: No significant disc pathology. The spinal canal is patent. Bilateral facet and uncovertebral joint arthropathy are present with mild bilateral neural foraminal stenosis. C5-C6: No significant disc pathology. The spinal canal is patent. No neural foraminal stenosis. C6-C7: No significant disc pathology. The spinal canal is patent. No neural foraminal stenosis. C7-T1: No significant disc pathology. The spinal canal is patent. No neural foraminal stenosis. Other: None. IMPRESSION: 1. Postsurgical changes to the skull base without evidence of tonsillar herniation through the ghazal en magnum on today's exam. There is an postoperative pseudomeningocoele with the right cerebellar hem isphere extending into this region approximately 7 mm. Unchanged from 2021. 2. No acute intracranial process. 3. No evidence of intracranial mass or acute/subacute infarct. 4. Nonspecific white matter changes, likely secondary to small vessel ischemic disease. 5. No evidence for disc herniation or significant spinal canal stenosis. 6. Mild disc degeneration with associated osteoarthritic changes.
== END | disposition home or self-care (01) ==
LOC: RADMRIMAIN 20:15
PROVIDERS: ATTEND Neurological Surgery
DX: G93.5 Compression of brain (principal); Q07.9 Congenital malformation of nervous system, unspecified; I99.8 Other disorder of circulatory system; M50.30 Other cervical disc degeneration, unspecified cervical region; M19.90 Unspecified osteoarthritis, unspecified site
CPT/HCPCS: 70551; 72141

== ENCOUNTER 2024-01-16 11:47 | Emergency (ER) | payer OTHER ==
[2024-01-16 11:56] VITALS: TEMP 97.9
--- NOTE | 2024-01-16 12:46 | CT ---
EXAMINATION TYPE: CT brain wo con CT DLP: 1150.4 mGycm, Automated exposure control for dose reduction was used. DATE OF EXAM: 01/16/2024 12:36 PM COMPARISON: MRI brain/C-spine 10/16/2023, CT brain C-spine 01/22/2020 CLINICAL INDICATION:Female, 63 years old with history of head pressure, elevated BP and head pressure Hx of decompression surgery TECHNIQUE: Brain: Multiple axial CT images of the brain were obtained without IV contrast. . Coronal and sagitta l reformats reviewed. FINDINGS: Brain: Extra-axial spaces: No abnormal extra-axial fluid collections. Ventricular system: Within normal limits Cerebral parenchyma: No acute intraparenchymal hemorrhage or mass effect. The millan-white junction is well differentiated. Scattered hypoattenuating areas are seen within the periventricular white matte r. Cerebellum: Postsurgical changes from posterior occipital decompression with decreased size of septat ed cystic fluid collection in the midline posterior occipital region at the surgical site measuring 3 .0 x 2.2 cm, previously 3.3 x 1.8 on prior MR. Consistent with pseudomeningocele. The posterior right aspect of the cerebellar tonsil extends region again. Mass effect: No evidence of midline shift. Intracranial vasculature: Atherosclerotic calcifications of the intracranial vessels. Involves the bi lateral internal carotid arteries and left MCA. Soft tissues: Normal. Calvarium/osseous structures: No depressed skull fracture. Postsurgical changes from posterior occipi larry decompression. Paranasal sinuses and mastoid air cells: Clear. Hypoplastic frontal sinuses. Visualized orbits: Bilateral aphakia IMPRESSION: 1. No acute intracranial process. 2. Nonspecific white matter changes, likely secondary to chronic small vessel ischemic disease. 3. 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 [facility], , 01/16/2024 12:44 PM
--- NOTE | 2024-01-16 14:05 | ED ---
General Adult HPI - General Chief complaint: Recheck/Abnormal Lab/Rx Stated complaint: stroke symptoms/high blood pressure Time Seen by Provider: 01/16/24 12:11 Source: patient Mode of arrival: ambulatory - History of Present Illness Initial comments: Dictation was produced using [employer] dictation software. please excuse any grammatical, word or spelling errors. Chief Complaint: 63-year-old female presents with hypertension History of Present Illness: Patient 63-year-old female sent in by the primary care doctor for hypertension. Patient is noncompliant. She supposed to be taking lisinopril has not taken it for years. She was trying to establish a primary care physician care with Dr. Romo. She had a blood pressure drawn and was found to be extremely high. Patient was sent to the ER for further care. Patient has chronic pressure in her head that is been ongoing since 2019 when she had occipital decompression procedure done by Dr. Summer Varner. Patient Nu[place] any changes in her symptoms. Patient denies any chest pain or shortness of breath. Denies any acute headache. Denies any numbness tingling paresthesias or strokelike symptoms. The ROS documented in this emergency department record has been reviewed and confirmed by me. Those systems with pertinent positive or negative responses have been documented in the HPI. All other systems are other negative and/or noncontributory. - Related Data Home Medications Medication Instructions Recorded Confirmed Atorvastatin [Lipitor] 40 mg PO HS 08/24/20 02/01/21 Ketorolac [Toradol] 10 mg PO BID 08/24/20 02/01/21 lisinopriL [Prinivil] 20 mg PO BID 08/24/20 02/01/21 Acetaminophen [Tylenol Extra 1,000 mg PO DIRECTED PRN 11/10/20 02/01/21 Strength] predniSONE 1 mg PO DAILY 02/01/21 02/01/21 Previous Rx's Medication Instructions Recorded lisinopriL [Prinivil] 20 mg PO BID 14 Days #28 tab 01/16/24 Allergies Allergy/AdvReac Type Severity Reaction Status Date / Time nickel Allergy Rash/Hives Verified 01/16/24 11:56 Opioids - Morphine Analogues AdvReac Nausea & Verified 01/16/24 11:56 Vomiting Review of Systems ROS Statement: Those systems with pertinent positive or pertinent negative responses have been documented in the HPI. ROS Other: All systems not noted in ROS Statement are negative. 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 CHRONIC HEAD/JAW PAIN.MIGRAINES IN PAST, History of Any Multi-Drug Resistant Organisms: None Reported Past Surgical History: Adenoidectomy, Cholecystectomy, Orthopedic Surgery, Tonsillectomy, Tubal Ligation, Uterine Ablation Additional Past Surgical History / Comment(s): Crainotomy, BILATERAL CATARACTS, CYST REMOVED FROM RIGHT FOOT, AND CYST REMOVED LEFT WRIST, COLONOSCOPY, RIGHT CARPAL TUNNEL RELEASE AND CYST REMOVED, RIGHT BREAST LUMPECTOMY(CALCIUM DEPOSIT), LEFT EYE SURGERY.LASER PK SURGERY BOTH EYES. Past Anesthesia/Blood Transfusion Reactions: No Reported Reaction Past Psychological History: No Psychological Hx Reported Smoking Status: Vaper Past Alcohol Use History: Rare Past Drug Use History: Marijuana - Past Family History Mother Family Medical History: Cancer Father Family Medical History: Cancer General Exam - General Exam Comments Initial Comments: PHYSICAL EXAM: General Impression: Alert and oriented x3, not in acute distress HEENT: Normocephalic atraumatic, extra-ocular movements intact, pupils equal and reactive to light bilaterally, mucous membranes moist. Cardiovascular: Heart regular rate and rhythm Chest: Able to complete full sentences, no retractions, no tachypnea Abdomen: abdomen soft, non-tender, non-distended, no organomegaly Musculoskeletal: Pulses present and equal in all extremities, no peripheral edema Motor: no focal deficits noted Neurological: CN II-XII grossly intact, no focal motor or sensory deficits noted Skin: Intact with no visualized rashes Psych: Normal affect and mood Course Vital Signs 01/16/24 01/16/24 01/16/24 11:52 14:09 15:13 Temperature 97.9 F Pulse Rate 87 70 68 Respiratory 18 18 18 Rate Blood Pressure 211/108 200/97 197/101 O2 Sat by Pulse 99 98 99 Oximetry - Reevaluation(s) Reevaluation #1: 01/16/24 14:26 Case was discussed with Dr. Romo. Patient was allegedly at his office clinic when she had blood pressure drawn and she was turned around told to come to the office. I did speak with Dr. Romo he states that patient was not accepted into his practice despite her having an office appointment. Medical Decision Making - Medical Decision Making Was pt. sent in by a medical professional or institution (, PA, MANAGER REGISTRATION, urgent care, hospital, or long term...) When possible be specific @ -No Did you speak to anyone other than the patient for history (EMS, parent, family, police, friend...)? What history was obtained from this source @ -No Did you review nursing and triage notes (agree or disagree)? Why? @ -I reviewed and agree with nursing and triage notes Were old charts reviewed (outside hosp., previous admission, EMS record, old EKG, old radiological studies, urgent care reports/EKG's, long term records)? Report findings @ -No old charts were reviewed Differential Diagnosis (chest pain, altered mental status, abdominal pain women, abdominal pain men, vaginal bleeding, musculoskeletal, weakness, fever, dyspnea, syncope, headache, dizziness, GI bleed, back pain, seizure, CVA, palpatations, mental health)? @ -Asymptomatic hypertension. Hypertensive emergency, intracranial bleed EKG interpreted by me (3pts min.). @ -None done X-rays interpreted by me (1pt min.). @ -None done CT interpreted by me (1pt min.). @ -CT brain is nonacute U/S interpreted by me (1pt. min.). @ -None done What testing was considered but not performed or refused? (CT, X-rays, U/S, labs)? Why? @ -None What meds were considered but not given or refused? Why? @ -None Was smoking cessation discussed for >3mins.? @ -No Were there social determinants of health that impacted care today? How? (Homelessness, low income, unemployed, alcoholism, drug addiction, transportation, low edu. Level, literacy, decrease access to med. care, snf, rehab)? @ -No Was there de-escalation of care discussed even if they declined (Discuss DNR or withdrawal of care, Hospice)? DNR status @ -No What co-morbidities impacted this encounter? (DM, HTN, Smoking, COPD, CAD, Cancer, CVA, ARF, Chemo, Hep., AIDS, mental health diagnosis, sleep apnea, morbid obesity)? @ -Chronic head pressure for the last several years, hypertension noncompliant with medications Was patient admitted / discharged? Hospital course, mention meds given and route, prescriptions, significant lab abnormalities, going to OR and other pertinent info. @ -63-year-old female to asymptomatic hypertension. Vital signs upon arrival shows a blood pressure of 211/108. Patient supposed to be on lisinopril however not taking it. She does not have any symptoms of hypertensive emergency. Laboratory evaluation is unremarkable. Patient given some hydralazine with improvement of blood pressure. Patient given prescription for lisinopril told to follow-up with primary care doctor. Did you discuss the management of the patient with other professionals (professionals i.e. , PA, MANAGER REGISTRATION, lab, RT, psych nurse, social science teacher, local tanker truck driver, teacher, tactical/mobile watch officer, rehabilitation case coordinator)? Give summary @ -See above Was critical care preformed (if so, how long)? @ -No Undiagnosed new problem with uncertain prognosis? @ -No Drug Therapy requiring intensive monitoring for toxicity (Heparin, Nitro, Insulin, Cardizem)? @ -No Were any procedures done? @ -No Diagnosis/symptom? Acute, or Chronic, or Acute on Chronic? Uncomplicated ( without systemic symptoms) or Complicated (systemic symptoms)? @ -Asymptomatic hypertension Side effects of treatment? @ -No Exacerbation, Progression, or Severe Exacerbation? @ -No Poses a threat to life or bodily function? How? (Chest pain, USA, VT, pneumonia, PE, COPD, DKA, ARF, appy, cholecystitis, CVA, Diverticulitis, Homicidal, Suicidal, threat to staff... and all critical care pts) @ -No - Lab Data Result diagrams: 01/16/24 14:08 01/16/24 14:08 Lab Results 01/16/24 01/16/24 Range/Units 14:08 14:08 WBC 7.8 (3.8-10.6) k/uL RBC 5.25 (3.80-5.40) m/uL Hgb 14.8 (11.4-16.0) gm/dL Hct 44.7 (34.0-46.0) % MCV 85.1 (80.0-100.0) fL MCH 28.1 (25.0-35.0) pg MCHC 33.1 (31.0-37.0) g/dL RDW 13.2 (11.5-15.5) % Plt Count 275 (150-450) k/uL MPV 8.5 Neutrophils % 66 % Lymphocytes % 22 % Monocytes % 6 % Eosinophils % 2 % Basophils % 1 % Neutrophils # 5.1 (1.3-7.7) k/uL Lymphocytes # 1.7 (1.0-4.8) k/uL Monocytes # 0.5 (0-1.0) k/uL Eosinophils # 0.2 (0-0.7) k/uL Basophils # 0.1 (0-0.2) k/uL Sodium 142 (137-145) mmol/L Potassium 3.7 (3.5-5.1) mmol/L Chloride 108 H (98-107) mmol/L Carbon Dioxide 26 (22-30) mmol/L Anion Gap 8 mmol/L BUN 11 (7-17) mg/dL Creatinine 0.83 (0.52-1.04) mg/dL Est GFR (CKD-EPI)AfAm 89 (>60 ml/min/1.73 sqM) Est GFR (CKD-EPI)NonAf 77 (>60 ml/min/1.73 sqM) Glucose 100 H (74-99) mg/dL Calcium 10.1 (8.4-10.2) mg/dL Disposition Clinical Impression: Asymptomatic hypertension Disposition: HOME SELF-CARE Condition: Good Prescriptions: lisinopriL [Prinivil] 20 mg PO BID 14 Days #28 tab Is patient prescribed a controlled substance at d/c from ED?: No Referrals: Anderw Romo MD [Primary Care Provider] - 1-2 days Time of Disposition: 15:46
[2024-01-16] MEDS: hydrALAZINE HCL 20 MG/ML 1 ML VIAL IVP STA ×2 (14:16→15:44)
[2024-01-16 14:18] LABS: Basophils # (A) 0.1 k/uL (0-0.2); Basophils % (A) 1 %; Eosinophils # (A) 0.2 k/uL (0-0.7); Eosinophils % (A) 2 %; HCT 44.7 % (34.0-46.0); HGB 14.8 gm/dL (11.4-16.0); Lymphocytes # (A) 1.7 k/uL (1.0-4.8); Lymphocytes % (A) 22 %; MCH 28.1 pg (25.0-35.0); MCHC 33.1 g/dL (31.0-37.0); MCV 85.1 fL (80.0-100.0); Mean Platelet Volume 8.5; Monocytes # (A) 0.5 k/uL (0-1.0); Monocytes % (A) 6 %; Neutrophils # (A) 5.1 k/uL (1.3-7.7); Neutrophils % (A) 66 %; Platelet Count 275 k/uL (150-450); RBC 5.25 m/uL (3.80-5.40); RDW 13.2 % (11.5-15.5); WBC 7.8 k/uL (3.8-10.6)
[2024-01-16 14:29] LABS: African American GFR (CKD) 89 (>60 ml/min/1.73 sqM); Anion Gap 8 mmol/L; Blood Urea Nitrogen 11 mg/dL (7-17); Calcium 10.1 mg/dL (8.4-10.2); Carbon Dioxide 26 mmol/L (22-30); Chloride 108 mmol/L (98-107); Glucose 100 mg/dL (74-99); Non-African American GFR(CKD) 77 (>60 ml/min/1.73 sqM); Potassium 3.7 mmol/L (3.5-5.1); Sodium 142 mmol/L (137-145)
[2024-01-16 15:44] VITALS: BP 177/79; PULSE 73; RESP 20
== END 2024-01-16 16:02 | disposition home or self-care (01) ==
LOC: EC 11:47
CPT/HCPCS: 36415; 70450; 80048; 85025; 96374; 99284

== ENCOUNTER 2024-01-25 05:45 | Emergency (ER) | payer OTHER ==
[2024-01-25 05:51] VITALS: TEMP 97.7
--- NOTE | 2024-01-25 06:14 | ED ---
Dizziness HPI - General Chief Complaint: Dizziness Stated Complaint: Dizziness Time Seen by Provider: 01/25/24 05:59 Source: patient, EMS, RN notes reviewed Mode of arrival: EMS Limitations: no limitations - History of Present Illness Initial Comments: This is a 63-year-old female who presents to the emergency department for dizziness. States that when she woke up this morning she started feeling like the room was spinning around her and she had associated nausea and vomiting. Symptoms are worse with any kind of movement or opening her eyes. She is sensitive to light, but states that she has been this way her whole life. Denies any headaches, chest pain, or shortness of breath. She has a history of occipital decompression due to Chiari malformation. She had this done in [address] Summer Varner. After that surgery states that she felt similar to how she does now. Denies ever being diagnosed with vertigo in the past. MD Complaint: dizziness - Related Data Home Medications Medication Instructions Recorded Confirmed Atorvastatin [Lipitor] 40 mg PO HS 08/24/20 02/01/21 Ketorolac [Toradol] 10 mg PO BID 08/24/20 02/01/21 lisinopriL [Prinivil] 20 mg PO BID 08/24/20 02/01/21 Acetaminophen [Tylenol Extra 1,000 mg PO DIRECTED PRN 11/10/20 02/01/21 Strength] predniSONE 1 mg PO DAILY 02/01/21 02/01/21 Previous Rx's Medication Instructions Recorded lisinopriL [Prinivil] 20 mg PO BID 14 Days #28 tab 01/16/24 Meclizine HCl 25 mg PO QID PRN #30 tab 01/25/24 Metoclopramide [Reglan] 10 mg PO Q6H PRN #30 tab 01/25/24 Ondansetron Odt [Zofran Odt] 4 mg PO Q8HR PRN #20 tab 01/25/24 Allergies Allergy/AdvReac Type Severity Reaction Status Date / Time nickel Allergy Rash/Hives Verified 01/16/24 11:56 Opioids - Morphine Analogues AdvReac Nausea & Verified 01/16/24 11:56 Vomiting Review of Systems ROS Statement: Those systems with pertinent positive or pertinent negative responses have been documented in the HPI. ROS Other: All systems not noted in ROS Statement are negative. 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 CHRONIC HEAD/JAW PAIN.MIGRAINES IN PAST, History of Any Multi-Drug Resistant Organisms: None Reported Past Surgical History: Adenoidectomy, Cholecystectomy, Orthopedic Surgery, Tonsillectomy, Tubal Ligation, Uterine Ablation Additional Past Surgical History / Comment(s): Crainotomy, BILATERAL CATARACTS, CYST REMOVED FROM RIGHT FOOT, AND CYST REMOVED LEFT WRIST, COLONOSCOPY, RIGHT CARPAL TUNNEL RELEASE AND CYST REMOVED, RIGHT BREAST LUMPECTOMY(CALCIUM DEPOSIT), LEFT EYE SURGERY.LASER PK SURGERY BOTH EYES. Past Anesthesia/Blood Transfusion Reactions: No Reported Reaction Past Psychological History: No Psychological Hx Reported Smoking Status: Vaper Past Alcohol Use History: Rare Past Drug Use History: Marijuana - Past Family History Mother Family Medical History: Cancer Father Family Medical History: Cancer General Exam Limitations: no limitations General appearance: alert, in no apparent distress Head exam: Present: atraumatic, normocephalic, normal inspection Eye exam: Present: normal appearance, PERRL, EOMI. Absent: scleral icterus, conjunctival injection, periorbital swelling Respiratory exam: Present: normal lung sounds bilaterally. Absent: respiratory distress, wheezes, rales, rhonchi, stridor Cardiovascular Exam: Present: regular rate, normal rhythm, normal heart sounds. Absent: systolic murmur, diastolic murmur, rubs, gallop, clicks Neurological exam: Present: alert, oriented X3, CN II-XII intact Psychiatric exam: Present: normal affect, normal mood Skin exam: Present: warm, dry, intact, normal color. Absent: rash Course Vital Signs 01/25/24 01/25/24 05:46 09:00 Temperature 97.7 F Pulse Rate 61 71 Respiratory 18 14 Rate Blood Pressure 154/90 O2 Sat by Pulse 96 98 Oximetry Medical Decision Making - Medical Decision Making This is a 63 year old female who presents to the emergency department for dizziness. Was pt. sent in by a medical professional or institution? @ -No Did you speak to anyone other than the patient for history? @ -No Did you review nursing and triage notes? @ -Yes, and I agree, it is accurate with regards to the patient's symptoms. Were old charts reviewed? @ -No Differential Diagnosis? @ -Differential Dizziness: Benign paroxysmal positional Vertigo, Meniere's disease, otitis media, acoustic neuroma, vertebrobasilar insufficiency, cerebellar stroke, encephalitis, hypovolemic, arrhythmia, coronary artery syndrome, anemia, this is not meant to be an all-inclusive list EKG interpreted by me (3pts min.)? @ -EKG interpreted by me demonstrating the following: Sinus rhythm. Ventricu lar rate 60 bpm, CT interval 159 ms, QRS duration 80 ms, QTc 454 ms. X-rays interpreted by me (1pt min.)? @ -Not obtained CT interpreted by me (1pt min.)? @ -CT scan of the brain obtained. My interpretation identifies no evidence of an acute intracranial hemorrhage. U/S interpreted by me (1pt. min.)? @ -Not obtained What testing was considered but not performed? (CT, X-rays, U/S, labs)? Why? @ -None What meds were considered but not given? Why? @ -None Did you discuss the management of the patient with other professionals? @ -No Did you reconcile home meds? @ -No Was smoking cessation discussed for >3mins.? @ -No Was critical care preformed (if so, how long)? @ -No Were there social determinants of health that impacted care today? How? (Home lessness, low income, unemployed, alcoholism, drug addiction, transportation, low edu. Level, literacy, decrease access to med. care, nursing home, rehab)? @ -No Was there de-escalation of care discussed even if they declined? (Discuss DNR or withdrawal of care, Hospice)? @ -No What co-morbidities impacted this encounter? (DM, HTN, Smoking, COPD, CAD, Ca ncer, CVA, Hep., AIDS, mental health diagnosis, sleep apnea, morbid obesity)? @ -HTN Was patient admitted / discharged? @ -Discharged. Lab work unremarkable. CT scan of the brain obtained revealing no acute process. HINTS exam negative. Patient has an NIH of 0. Symptoms were all worse with movement and described as a room spinning sensation. Symptoms li sravani related to BPPV. We were able to get both the dizziness and nausea well- controlled in the emergency department and she felt comfortable with discharge home at that point. Prescription for meclizine, Reglan, and Zofran provided. Also discussed the half somersault maneuver by Dr. Haily Mckeon as an additional treatment option. Advised close follow-up with her PCP. Patient discharged home in stable condition. Case discussed with ED attending Dr. Landrum. Return precautions reviewed in depth, the patient is instructed to return to the emergency department with any new, worsening, or concerning symptoms. Patient verbalized understanding. Undiagnosed new problem with uncertain prognosis? @ -None Drug Therapy requiring intensive monitoring for toxicity (Heparin, Nitro, Insulin, Cardizem)? @ -None Were any procedures done? @ -None Diagnosis/symptom? @ -Dizziness, BPPV Acute, or Chronic, or Acute on Chronic? @ -Acute Uncomplicated (without systemic symptoms) or Complicated (systemic symptoms)? @ -Uncomplicated Side effects of treatment? @ -None Exacerbation, Progression, or Severe Exacerbation] @ -Not applicable Poses a threat to life or bodily function? @ -No - Lab Data Result diagrams: 01/25/24 06:07 01/25/24 06:07 Lab Results 01/25/24 01/25/24 Range/Units 06:07 06:07 WBC 6.5 (3.8-10.6) k/uL RBC 5.11 (3.80-5.40) m/uL Hgb 14.4 (11.4-16.0) gm/dL Hct 43.8 (34.0-46.0) % MCV 85.6 (80.0-100.0) fL MCH 28.1 (25.0-35.0) pg MCHC 32.8 (31.0-37.0) g/dL RDW 13.3 (11.5-15.5) % Plt Count 275 (150-450) k/uL MPV 8.3 Neutrophils % 52 % Lymphocytes % 32 % Monocytes % 7 % Eosinophils % 5 % Basophils % 1 % Neutrophils # 3.3 (1.3-7.7) k/uL Lymphocytes # 2.1 (1.0-4.8) k/uL Monocytes # 0.5 (0-1.0) k/uL Eosinophils # 0.3 (0-0.7) k/uL Basophils # 0.1 (0-0.2) k/uL Sodium 139 (137-145) mmol/L Potassium 4.3 (3.5-5.1) mmol/L Chloride 109 H (98-107) mmol/L Carbon Dioxide 21 L (22-30) mmol/L Anion Gap 9 mmol/L BUN 16 (7-17) mg/dL Creatinine 0.81 (0.52-1.04) mg/dL Est GFR (CKD-EPI)AfAm >90 (>60 ml/min/1.73 sqM) Est GFR (CKD-EPI)NonAf 79 (>60 ml/min/1.73 sqM) Glucose 149 H (74-99) mg/dL Calcium 9.7 (8.4-10.2) mg/dL Magnesium 2.1 (1.6-2.3) mg/dL Total Bilirubin 0.4 (0.2-1.3) mg/dL AST 29 (14-36) U/L ALT 33 (4-34) U/L Alkaline Phosphatase 75 (38-126) U/L Total Protein 6.5 (6.3-8.2) g/dL Albumin 4.2 (3.5-5.0) g/dL - Radiology Data Radiology results: report reviewed, image reviewed Disposition Clinical Impression: BPPV (benign paroxysmal positional vertigo) Disposition: HOME SELF-CARE Instructions (If sedation given, give patient instructions): Vertigo (ED), Benign Paroxysmal Positional Vertigo (ED), Dizziness (ED) Additional Instructions: Return to the emergency department with any new, worsening, or concerning symptoms. Take the meclizine up to 4 times daily for feelings of vertigo/ dizziness. The Reglan can be taken up to every 6 hours. This will help with vertigo/dizziness and nausea. Zofran can be taken up to every 8 hours as needed for nausea and vomiting. Look up the half somersault maneuver with Dr. Haily Mckeon on YouTube. This provides additional treatments you can do at home for your symptoms. Follow up with your primary care provider in 1-2 days. Prescriptions: Meclizine HCl 25 mg PO QID PRN #30 tab PRN Reason: Vertigo Metoclopramide [Reglan] 10 mg PO Q6H PRN #30 tab PRN Reason: Nausea And Vomiting Ondansetron Odt [Zofran Odt] 4 mg PO Q8HR PRN #20 tab PRN Reason: Nausea And Vomiting Is patient prescribed a controlled substance at d/c from ED?: No Referrals: None,Stated [Primary Care Provider] - 1-2 days Time of Disposition: 09:15
[2024-01-25 06:26] LABS: Basophils # (A) 0.1 k/uL (0-0.2); Basophils % (A) 1 %; Eosinophils # (A) 0.3 k/uL (0-0.7); Eosinophils % (A) 5 %; HCT 43.8 % (34.0-46.0); HGB 14.4 gm/dL (11.4-16.0); Lymphocytes # (A) 2.1 k/uL (1.0-4.8); Lymphocytes % (A) 32 %; MCH 28.1 pg (25.0-35.0); MCHC 32.8 g/dL (31.0-37.0); MCV 85.6 fL (80.0-100.0); Mean Platelet Volume 8.3; Monocytes # (A) 0.5 k/uL (0-1.0); Monocytes % (A) 7 %; Neutrophils # (A) 3.3 k/uL (1.3-7.7); Neutrophils % (A) 52 %; Platelet Count 275 k/uL (150-450); RBC 5.11 m/uL (3.80-5.40); RDW 13.3 % (11.5-15.5); WBC 6.5 k/uL (3.8-10.6)
[2024-01-25] MEDS: ONDANSETRON 4 MG/2 ML VIAL IVP STA (06:28)
[2024-01-25] MEDS: MECLIZINE 12.5 MG TAB PO STA (06:28)
[2024-01-25] MEDS: SODIUM CHLORIDE 0.9% 1,000 ML IV STA (06:29)
[2024-01-25] MEDS: METOCLOPRAMIDE 5 MG/ML 2 ML VIAL IVP STA (06:37)
[2024-01-25] MEDS: SCOPOLAMINE 1 MG/72 HR PATCH TRANSDERM STA (07:02)
[2024-01-25 07:05] LABS: ALT 33 U/L (4-34); AST 29 U/L (14-36); African American GFR (CKD) >90 (>60 ml/min/1.73 sqM); Albumin 4.2 g/dL (3.5-5.0); Alkaline Phosphatase 75 U/L (38-126); Anion Gap 9 mmol/L; Blood Urea Nitrogen 16 mg/dL (7-17); Calcium 9.7 mg/dL (8.4-10.2); Carbon Dioxide 21 mmol/L (22-30); Chloride 109 mmol/L (98-107); Glucose 149 mg/dL (74-99); Magnesium 2.1 mg/dL (1.6-2.3); Non-African American GFR(CKD) 79 (>60 ml/min/1.73 sqM); Potassium 4.3 mmol/L (3.5-5.1); Sodium 139 mmol/L (137-145); Total Bilirubin 0.4 mg/dL (0.2-1.3); Total Protein 6.5 g/dL (6.3-8.2)
--- NOTE | 2024-01-25 09:04 | CT ---
EXAMINATION TYPE: CT brain wo con DATE OF EXAM: 01/25/2024 COMPARISON: 01/16/2024 HISTORY: Dizziness CT DLP: 1095.7 mGycm Automated exposure control for dose reduction was used. Findings: The ventricles, basal cisterns and sulci over the convexities are within normal limits and there is n o mass effect or shift of midline structures. No abnormal density is seen throughout the brain parenchyma and there is no acute intra or extra-axia l hemorrhage. The posterior fossa including the brainstem, fourth ventricle and cerebellar pontine angles appear no rmal. Intraorbital contents appear normal and symmetric. Visualized paranasal sinuses and mastoid air cells are well aerated. Stable postsurgical defect in the posterior calvarium for decompression. IMPRESSION: No significant abnormality seen. There is no acute bleed or mass effect. [facility], , 01/25/2024 9:01 AM
[2024-01-25 09:11] VITALS: BP 154/90; PULSE 71; RESP 14
== END 2024-01-25 09:28 | disposition home or self-care (01) ==
LOC: EC 05:45
CPT/HCPCS: 36415; 70450; 80053; 83735; 85025; 93005; 96361; 96374; 96375; 99285

== ENCOUNTER 2024-06-25 11:52 | Emergency (ER) | payer OTHER ==
[2024-06-25 11:57] VITALS: RESP 18
--- NOTE | 2024-06-25 13:01 | ED ---
General Adult HPI - General Source: patient, RN notes reviewed Mode of arrival: ambulatory Limitations: no limitations <Brnadon Atkinson - Last Filed: 06/25/24 12:56> - General Source: patient, RN notes reviewed Mode of arrival: ambulatory Limitations: no limitations <Oscar Hutchins - Last Filed: 06/25/24 15:47> - General Chief complaint: Recheck/Abnormal Lab/Rx Stated complaint: Irreg BP Time Seen by Provider: 06/25/24 12:05 - History of Present Illness Initial comments: Quick note 63-year-old female presents emerged department from PCPs office after initial visit today for hypertension and headache. Patient has a history of Chiari malformation with decompression and she states that she has had a bleed in the past but had no treatment. Patient states that she supposed be on blood pressure medication but has not been because she cannot keep up primary care physician. Patient denies any chest pain or shortness of breath. (Brandon Atkinson) Patient is a 63-year-old female present to the emergency department with concern for elevated blood pressure. Patient states she has been off her blood pressure medication for months. Patient did see her primary care physician and blood pressure was 200 systolic and was advised to come to the emergency department. Patient states she did find one of her old lisinopril's 40 mg that she did take today otherwise has not been taking it. Patient has no new complaints today other than being agitated. (Oscar Hutchins) - Related Data Home Medications Medication Instructions Recorded Confirmed Atorvastatin [Lipitor] 40 mg PO HS 08/24/20 02/01/21 Ketorolac [Toradol] 10 mg PO BID 08/24/20 02/01/21 lisinopriL [Prinivil] 20 mg PO BID 08/24/20 02/01/21 Acetaminophen [Tylenol Extra 1,000 mg PO DIRECTED PRN 11/10/20 02/01/21 Strength] predniSONE 1 mg PO DAILY 02/01/21 02/01/21 Previous Rx's Medication Instructions Recorded lisinopriL [Prinivil] 20 mg PO BID 14 Days #28 tab 01/16/24 Meclizine HCl 25 mg PO QID PRN #30 tab 01/25/24 Metoclopramide [Reglan] 10 mg PO Q6H PRN #30 tab 01/25/24 Ondansetron Odt [Zofran Odt] 4 mg PO Q8HR PRN #20 tab 01/25/24 lisinopriL 40 mg PO DAILY #10 tab 06/25/24 Allergies Allergy/AdvReac Type Severity Reaction Status Date / Time nickel Allergy Rash/Hives Verified 06/25/24 11:57 Opioids - Morphine Analogues AdvReac Nausea & Verified 06/25/24 11:57 Vomiting Review of Systems ROS Other: All systems not noted in ROS Statement are negative. <Brandon Atkinson - Last Filed: 06/25/24 12:56> ROS Other: All systems not noted in ROS Statement are negative. Constitutional: Denies: fever Eyes: Denies: eye pain ENT: Denies: ear pain Cardiovascular: Denies: chest pain Gastrointestinal: Denies: abdominal pain Neurological: Reports: headache (Chronic, unchanged). Denies: weakness <Oscar Hutchins - Last Filed: 06/25/24 15:47> ROS Statement: Those systems with pertinent positive or pertinent negative responses have been documented in the HPI. 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 CHRONIC HEAD/JAW PAIN.MIGRAINES IN PAST, History of Any Multi-Drug Resistant Organisms: None Reported Past Surgical History: Adenoidectomy, Cholecystectomy, Orthopedic Surgery, Tonsillectomy, Tubal Ligation, Uterine Ablation Additional Past Surgical History / Comment(s): Crainotomy, BILATERAL CATARACTS, CYST REMOVED FROM RIGHT FOOT, AND CYST REMOVED LEFT WRIST, COLONOSCOPY, RIGHT CARPAL TUNNEL RELEASE AND CYST REMOVED, RIGHT BREAST LUMPECTOMY(CALCIUM DEPOSIT), LEFT EYE SURGERY.LASER PK SURGERY BOTH EYES. Past Anesthesia/Blood Transfusion Reactions: No Reported Reaction Past Psychological History: No Psychological Hx Reported Smoking Status: Former smoker Past Alcohol Use History: Rare Past Drug Use History: Marijuana - Past Family History Mother Family Medical History: Cancer Father Family Medical History: Cancer <Brandon Atkinson - Last Filed: 06/25/24 12:56> General Exam Limitations: no limitations <Brandon Atkinson - Last Filed: 06/25/24 12:56> Limitations: no limitations General appearance: alert, in no apparent distress Head exam: Present: normocephalic Eye exam: Present: normal appearance, PERRL, EOMI ENT exam: Present: normal oropharynx Respiratory exam: Present: normal lung sounds bilaterally Cardiovascular Exam: Present: regular rate, normal rhythm GI/Abdominal exam: Present: soft. Absent: tenderness Extremities exam: Present: normal inspection Neurological exam: Present: alert, CN II-XII intact. Absent: motor sensory deficit Expanded Neurological exam: Present: protecting the airway Speech: Present: fluid speech Cranial nerves: EOM's Intact: Normal Motor strength exam: RUE: 5, LUE: 5, RLE: 5, LLE: 5 Eye Response: (4) open spontaneously Motor Response: (6) obeys commands Verbal Response: (5) oriented Psychiatric exam: Present: agitated Skin exam: Present: normal color <Oscar Hutchins - Last Filed: 06/25/24 15:47> - General Exam Comments Initial Comments: Physical exam Visual Physical Exam Vital signs reviewed General: Well-appearing, nontoxic, no acute distress. Head: Normocephalic, atraumatic Eyes: PERRLA, EOMI ENT: Airway patent Chest: Nonlabored breathing Skin: No visual rash, normal skin tone Neuro: Alert and oriented 3 Musculoskeletal: No gross abnormalities (Brandon Atkinson) Course Vital Signs 06/25/24 06/25/24 06/25/24 11:53 14:19 15:25 Temperature 97.4 F L 98.0 F Pulse Rate 78 83 82 Respiratory 18 18 18 Rate Blood Pressure 214/93 188/120 154/80 O2 Sat by Pulse 98 98 97 Oximetry EKG Findings - EKG Results: EKG: interpreted by ERMD (Q wave V1 and V2), sinus rhythm, normal axis, normal ST/T <Oscar Hutchins - Last Filed: 06/25/24 15:47> Medical Decision Making <Brandon Atkinson - Last Filed: 06/25/24 12:56> - Lab Data Result diagrams: 06/25/24 13:09 06/25/24 13:09 <Oscar Hutchins - Last Filed: 06/25/24 15:47> - Medical Decision Making I completed the quick note portion of this chart signed Brandon Atkinson PA-C (Brandon Atkinson) Was pt. sent in by a medical professional or institution ([facility], [facility], urgent care, hospital, or senior living...) When possible be specific @ -Patient was sent in by Dr. Dong Mattson Did you speak to anyone other than the patient for history (EMS, parent, family, police, friend...)? What history was obtained from this source @ -No Did you review nursing and triage notes (agree or disagree)? Why? @ -I reviewed and agree with nursing and triage notes Were old charts reviewed (outside hosp., previous admission, EMS record, old EKG, old radiological studies, urgent care reports/EKG's, senior living records)? Report findings @ -No old charts were reviewed Differential Diagnosis (chest pain, altered mental status, abdominal pain women, abdominal pain men, vaginal bleeding, weakness, fever, dyspnea, syncope, headache, dizziness, GI bleed, back pain, seizure, CVA, palpatations, mental health, musculoskeletal)? @ -Not applicable EKG interpreted by me (3pts min.). @ -As above X-rays interpreted by me (1pt min.). @ -Chest x-ray does not reveal acute abnormality CT interpreted by me (1pt min.). @ -None done U/S interpreted by me (1pt. min.). @ -None done What testing was considered but not performed or refused? (CT, X-rays, U/S, labs)? Why? @ -None What meds were considered but not given or refused? Why? @ -None Did you discuss the management of the patient with other professionals (professionals i.e. , PA, [facility], lab, RT, psych nurse, director of social services, failure analysis technician, teacher, police officer, rehabilitation caseworker)? Give summary @ -No Was smoking cessation discussed for >3mins.? @ -No Was critical care preformed (if so, how long)? @ -No Were there social determinants of health that impacted care today? How? (Homel essness, low income, unemployed, alcoholism, drug addiction, transportation, low edu. Level, literacy, decrease access to med. care, fdc, rehab)? @ -No Was there de-escalation of care discussed even if they declined (Discuss DNR or withdrawal of care, Hospice)? DNR status @ -No What co-morbidities impacted this encounter? (DM, HTN, Smoking, COPD, CAD, Cancer, CVA, ARF, Chemo, Hep., AIDS, mental health diagnosis, sleep apnea, morbid obesity)? @ -History of untreated hypertension Was patient admitted / discharged? Hospital course, mention meds given and route, prescriptions, significant lab abnormalities, going to OR and other pertinent info. @ -Patient presents with concerns for high blood pressure. Patient has been off her medications for months. Patient has no new symptoms. Blood pressure has improved. Patient will be provided short-term prescription and recommended close follow-up with primary care physician. Undiagnosed new problem with uncertain prognosis? @ -No Drug Therapy requiring intensive monitoring for toxicity (Heparin, Nitro, Insulin, Cardizem)? @ -No Were any procedures done? @ -No Diagnosis/symptom? @ -Hypertension Acute, or Chronic, or Acute on Chronic? @ -Acute on chronic Uncomplicated (without systemic symptoms) or Complicated (systemic symptoms)? @ -Default Side effects of treatment? @ -No Exacerbation, Progression, or Severe Exacerbation? @ -No Poses a threat to life or bodily function? How? (Chest pain, USA, SD, pneumonia, PE, COPD, DKA, ARF, appy, cholecystitis, CVA, Diverticulitis, Homicidal, Suicidal, threat to staff... and all critical care pts) @ -No (Oscar Hutchins) - Lab Data Lab Results 06/25/24 06/25/24 Range/Units 13:09 13:09 WBC 8.2 (3.8-10.6) k/uL RBC 5.26 (3.80-5.40) m/uL Hgb 14.5 (11.4-16.0) gm/dL Hct 45.2 (34.0-46.0) % MCV 86.0 (80.0-100.0) fL MCH 27.6 (25.0-35.0) pg MCHC 32.1 (31.0-37.0) g/dL RDW 13.3 (11.5-15.5) % Plt Count 331 (150-450) k/uL MPV 7.9 Neutrophils % 60 % Lymphocytes % 27 % Monocytes % 7 % Eosinophils % 3 % Basophils % 2 % Neutrophils # 4.9 (1.3-7.7) k/uL Lymphocytes # 2.2 (1.0-4.8) k/uL Monocytes # 0.6 (0-1.0) k/uL Eosinophils # 0.2 (0-0.7) k/uL Basophils # 0.1 (0-0.2) k/uL Sodium 140 (137-145) mmol/L Potassium 4.2 (3.5-5.1) mmol/L Chloride 106 (98-107) mmol/L Carbon Dioxide 25 (22-30) mmol/L Anion Gap 9 mmol/L BUN 14 (7-17) mg/dL Creatinine 0.70 (0.52-1.04) mg/dL Est GFR (CKD-EPI)AfAm >90 (>60 ml/min/1.73 sqM) Est GFR (CKD-EPI)NonAf >90 (>60 ml/min/1.73 sqM) Glucose 117 H (74-99) mg/dL Calcium 10.1 (8.4-10.2) mg/dL Total Bilirubin 0.4 (0.2-1.3) mg/dL AST 28 (14-36) U/L ALT 28 (4-34) U/L Alkaline Phosphatase 85 (38-126) U/L Total Protein 7.4 (6.3-8.2) g/dL Albumin 4.6 (3.5-5.0) g/dL Disposition <Brandon Atkinson - Last Filed: 06/25/24 12:56> Is patient prescribed a controlled substance at d/c from ED?: No Time of Disposition: 15:46 <sOcar Hutchins - Last Filed: 06/25/24 15:47> Clinical Impression: Hypertension Disposition: HOME SELF-CARE Condition: Stable Instructions (If sedation given, give patient instructions): Hypertension (ED) Additional Instructions: Please do follow-up with your primary care physician in the next day or 2 for recheck. Prescription sent to pharmacy. Return for uncontrolled blood pressure, worsening or changing symptoms or any other concerns. Prescriptions: lisinopriL 40 mg PO DAILY #10 tab Referrals: Sil Richards MD [Primary Care Provider] - 1-2 days
[2024-06-25 13:34] LABS: Basophils # (A) 0.1 k/uL (0-0.2); Basophils % (A) 2 %; Eosinophils # (A) 0.2 k/uL (0-0.7); Eosinophils % (A) 3 %; HCT 45.2 % (34.0-46.0); HGB 14.5 gm/dL (11.4-16.0); Lymphocytes # (A) 2.2 k/uL (1.0-4.8); Lymphocytes % (A) 27 %; MCH 27.6 pg (25.0-35.0); MCHC 32.1 g/dL (31.0-37.0); Mean Platelet Volume 7.9; Monocytes # (A) 0.6 k/uL (0-1.0); Monocytes % (A) 7 %; Neutrophils # (A) 4.9 k/uL (1.3-7.7); Neutrophils % (A) 60 %; Platelet Count 331 k/uL (150-450); RBC 5.26 m/uL (3.80-5.40); RDW 13.3 % (11.5-15.5); WBC 8.2 k/uL (3.8-10.6)
[2024-06-25 13:51] LABS: ALT 28 U/L (4-34); AST 28 U/L (14-36); African American GFR (CKD) >90 (>60 ml/min/1.73 sqM); Albumin 4.6 g/dL (3.5-5.0); Alkaline Phosphatase 85 U/L (38-126); Anion Gap 9 mmol/L; Blood Urea Nitrogen 14 mg/dL (7-17); Calcium 10.1 mg/dL (8.4-10.2); Carbon Dioxide 25 mmol/L (22-30); Chloride 106 mmol/L (98-107); Glucose 117 mg/dL (74-99); Non-African American GFR(CKD) >90 (>60 ml/min/1.73 sqM); Potassium 4.2 mmol/L (3.5-5.1); Sodium 140 mmol/L (137-145); Total Bilirubin 0.4 mg/dL (0.2-1.3); Total Protein 7.4 g/dL (6.3-8.2)
--- NOTE | 2024-06-25 14:02 | CT ---
EXAMINATION TYPE: CT brain wo con DATE OF EXAM: 06/25/2024 COMPARISON: 01/25/2024 CLINICAL INDICATION: Female, 63 years old with history of SEBASTIAN, prior surgery; PHH, Headache, prior natali arsalan CT DLP: 1098.4 mGycm Automated exposure control for dose reduction was used. Findings: The ventricles, basal cisterns and sulci over the convexities are within normal limits and there is n o mass effect or shift of midline structures. No abnormal density is seen throughout the brain parenchyma and there is no acute intra or extra-axia l hemorrhage. The posterior fossa including the brainstem, fourth ventricle and cerebellar pontine angles appear no rmal. Intraorbital contents appear normal and symmetric. Visualized paranasal sinuses and mastoid air cells are well aerated. There is an occipital craniotomy defect. IMPRESSION: 1. No acute bleed or mass effect. 2. Stable occipital craniotomy defect. 3. No significant interval change. [facility], , 06/25/2024 1:59 PM
[2024-06-25] MEDS: hydrALAZINE HCL 20 MG/ML 1 ML VIAL IVP STA (14:38)
[2024-06-25] MEDS: LORazepam 2 MG/ML INJ IV STA (14:43)
[2024-06-25 15:26] VITALS: BP 154/80; PULSE 82; TEMP 98
== END 2024-06-25 15:56 | disposition home or self-care (01) ==
LOC: EC 11:52
DX: I10 Essential (primary) hypertension (principal); Z87.891 Personal history of nicotine dependence
CPT/HCPCS: 36415; 93005; 80053; 85025; 70450; 99284; 96374; 96375; J2060; J0360

== ENCOUNTER → 2024-08-01 | Outpatient (CLI) | payer OTHER ==
--- NOTE | 2024-08-01 08:08 | MR ---
EXAMINATION TYPE: MR angio head wo con DATE OF EXAM: 08/01/2024 7:57 AM COMPARISON: None. CLINICAL INDICATION: Female, 64 years old with history of Z86.89 hx chiari malformation, Headaches, H x of Chiari malformation IV Contrast: cc (None if empty) TECHNIQUE: Time of flight images focusing on the [place] were performed without contrast. FINDINGS: There is no sizable aneurysm sac, vascular malformation or occlusive disease. IMPRESSION: No significant abnormality seen. [facility], , 08/01/2024 8:05 AM
--- NOTE | 2024-08-01 08:32 | MR ---
EXAMINATION TYPE: MR brain wo/w con DATE OF EXAM: 08/01/2024 8:20 AM COMPARISON: 10/16/2023 CLINICAL INDICATION: Female, 64 years old with history of Z86.69 hx chiari malformation, Headaches, H x of Chiari malformation, Prior MRI and CT Brain in Pacs IV Contrast: 9 cc Gadobutrol (None if empty) TECHNIQUE: Multiplanar, multisequence images of the brain and brainstem is performed without and with IV contras t, utilizing 9 mL intravenous Gadobutrol . Findings: The T1-weighted sagittal images there are postsurgical changes at the craniovertebral junction consis tent with surgical correction for Chiari I malformation. The remaining midline structures are normal. The ventricles, basal cisterns and sulci over the convexities within normal limits and there is no ma ss effect or shift of the midline structures. There are a few scattered multifocal areas of abnormal increased signal intensity in the white matter of both cerebral hemispheres which are nonspecific findings and most likely are present chronic isch emic white matter change. On the diffusion-weighted images, there is no diffusion restriction or acute ischemic event. Following contrast administration, there is no pathological enhancement throughout the brain parenchy ma. On susceptibility weighted imaging there is no evidence of parenchymal hemorrhage The intraorbital contents are normal and symmetric. Visualized paranasal sinuses and mastoid air cells are well aerated. IMPRESSION: 1. Postsurgical changes at the cranial vertebral junction with partial resection of the occipital bon e for Chiari I malformation. 2. No mass, mass effect acute ischemic event or pathological enhancement [facility], Workstation: [id number] 08/01/2024 8:30 AM
== END | disposition home or self-care (01) ==
LOC: RADMRIMAIN 07:24
PROVIDERS: ATTEND Family Medicine
DX: G93.5 Compression of brain (principal); G89.29 Other chronic pain; Z86.69 Personal history of other diseases of the nervous system and sense organs
CPT/HCPCS: 70544; 70553; A9585

== ENCOUNTER → 2024-08-03 | Outpatient (CLI) | payer OTHER ==
--- NOTE | 2024-08-03 14:42 | CTL ---
EXAMINATION TYPE: CT Low Dose Lung DATE OF EXAM: 08/03/2024 2:26 PM COMPARISON: 04/17/2019 CLINICAL INDICATION: Female, 64 years old with history of Z12.2 SCREENING LUNG CA Z87.891 FORMER SMOK ER; FORMER SMOKER, PT QUIT 4 YEARS AGO, CHRONIC COUGH, history of tobacco use. TECHNIQUE: Multiple axial non-contrast scans were obtained from approximately the lung apices through the upper abdomen. Coronal and sagittal reformatted images were obtained. Low dose technique was uti lized. MIP were created on a separate workstation and submitted for review. CT DLP: 112.90 mGycm, Automated exposure control for dose reduction was used. CT Contrast: Contrast used: None Oral contrast used: None FINDINGS: Lack of intravenous contrast and low dose technique limits the evaluation of the vascular and soft ti ssue structures. LUNGS: No evidence of pulmonary fibrosis. No evidence of focal consolidation, pneumothorax or pleural effusion. Centrilobular and paraseptal emphysema changes. Nodules: RUL: None. RML: None. RLL: None. FRANCO: None. LLL: r 4 mm series 5 image 42, stable. AIRWAY: Patent and unremarkable. HEART: Size within normal limits. Moderate coronary artery calcifications present. MEDIASTINUM: No gross evidence of adenopathy. VASCULATURE: No aortic aneurysm. MUSCULOSKELETAL: No acute osseous abnormalities SOFT TISSUES/LYMPH NODES: Unremarkable. LOWER NECK: No significant findings. UPPER ABDOMEN: The gallbladder surgically absent. Few scattered colonic diverticula. IMPRESSION: 1. No clinically significant pulmonary nodules. 2. Mild emphysema. CT LUNG RAD AND CT CHEST RECOMMENDATION: Lung-Rad 2 Benign Appearance or Behavior: Continue annual sc reening with LDCT in 12 months. S Modifier (other clinically significant findings): None Recommend smoking cessation (if current smoker), or continuation of smoking cessation (if prior smoke r). Annual screening for lung cancer with low-dose computed tomography is recommended in adults ages 55 to 77 years who have a 30 pack-year smoking history and currently smoke or have quit within the pa st 15 years. Screening should be discontinued once a person has not smoked for 15 years or develops a health problem that substantially limits life expectancy or the ability or willingness to have curat janet lung surgery. Lung rads 2021 [email or web address] [facility], , 08/03/2024 2:40 PM
== END | disposition home or self-care (01) ==
LOC: RADCTMAIN 12:49
PROVIDERS: ATTEND Family Medicine
DX: Z12.2 Encounter for screening for malignant neoplasm of respiratory organs (principal); J43.2 Centrilobular emphysema; Z87.891 Personal history of nicotine dependence
CPT/HCPCS: 71271

== ENCOUNTER → 2024-08-11 | Outpatient (CLI) | payer OTHER ==
--- NOTE | 2024-08-11 10:37 | US ---
EXAMINATION TYPE: US renal artery duplex complet DATE OF EXAM: 08/11/2024 COMPARISON: NONE CLINICAL INDICATION: Female, 64 years old with history of I10 UNCONTROLLED HTN; uncontrolled HTN TECHNIQUE: Grayscale, color Doppler and spectral Doppler imaging of the bilateral renal arteries and kidneys. FINDINGS: MEASUREMENTS: RENAL SIZE: Right Kidney: 9.9x4.5x4.6 Left Kidney: 10.2x4.3x4.5 Right Kidney: wnl Left Kidney: wnl Abd Aorta: small AAA at the distal aorta measuring 3.8x4.5cm RESISTANCE INDEX Right: 0.7 Left: 0.7 RA/AO RATIO (< 3.5 ) Right: 1.0 Left: 1.5 RENAL ARTERY VELOCITY ( < 180 cm/s) Right: 91.6 Left: 141.8 Dock Or Pier Laborer Notes: no sign of stenosis Appropriate color Doppler flow and spectral waveforms to the kidneys bilaterally. Grayscale imaging of the kidneys and show no evidence for hydronephrosis or mass. No renal calculi or cysts visualized. Exam limited by bowel gas and habitus IMPRESSION: No evidence for renal artery stenosis bilaterally. [facility], , 08/11/2024 10:34 AM
== END | disposition home or self-care (01) ==
LOC: RADUSWWP 08:44
PROVIDERS: ATTEND Family Medicine
DX: I10 Essential (primary) hypertension (principal)
CPT/HCPCS: 93975